=== PATIENT | female | born 1945 | race Caucasian/White ===

== ENCOUNTER 2022-08-17 13:36 | Inpatient (IN) ==
[2022-08-17] MEDS ORDERED: SODIUM CHLORIDE 0.9% 500 ML IV STA (14:01)
[2022-08-17] MEDS ORDERED: ONDANSETRON INJ 2 MG/ML 2 ML VIAL IV STA (14:01)
--- NOTE | 2022-08-17 14:05 | Emergency Department Note ---
Impression & Plan Acute pancreatitis, Acute diverticulitis, Acute right flank pain ED Provider Note NAME: RICKEY GASTON AGE: 77 SEX: F : 1945 ARRIVES VIA: Walk-In INFORMANT: Patient, ED PROVIDER(S): Pola Huston DO CHIEF COMPLAINT: Abdominal pain HPI: The patient is a 77-year-old female who is a history of chronic back pain who presented to the emergency department for an evaluation of upper abdominal pain. The patient recently had an injection in her back with an epidural injection. She states he did notice that her pain in her back had significantly improved but then she started noticing right upper quadrant and right flank pain. She denies having any chest pain or difficulty breathing. She denies having any dysuria or frequency. But does complain of urinary frequency and weight loss. She denies having any lower extremity swelling. She denies having any black or bloody bowels. The patient states that she still has her ga llbladder. ROS: See above HPI for pertinent positives & negatives. A total of 10 systems reviewed and were otherwise negative. PAST MEDICAL HISTORY: See Below PAST SURGICAL HISTORY: See Below FAMILY HISTORY: See Below SOCIAL HISTORY: See Below HOME MEDICATIONS: See Below ALLERGIES: See Below VITALS: See Below PHYSICAL EXAMINATION: GENERAL: Patient is awake alert in no acute distress patient is resting comfortably and showing no signs of anxiety EYES: The conjunctivae are clear. The pupils are round and reactive. EARS, NOSE, MOUTH AND THROAT: The nose is without any evidence of any deformity. Mucous membranes are moist. Tongue is midline. NECK: The neck is nontender and supple. RESPIRATORY: Normal respiratory effort is noted there is no evidence of wheezing rhonchi or rales CARDIOVASCULAR: Regular rate and rhythm noted there no murmurs rubs or gallops normal S1 normal S2. GASTROINTESTINAL: Abdomen was soft and moderately distended. There is right upper quadrant tenderness to palpation. PELVIS: The Pelvis is stable. No tenderness to palpation is noted. BACK: Right CVA tenderness was noted to percussion. MUSCULOSKELETAL/EXTREMITIES: There is no evidence of gross deformity full range of motion is noted in the hips and shoulders. SKIN: There is no obvious evidence of any rash. There are no petechiae, pallor or cyanosis noted. NEUROLOGIC: Patient is awake alert and oriented x3. MEDICAL DECISION MAKING: The patient is a 77-year-old female who presented to the emergency department for an evaluation of flank pain. Patient has significant pain on physical exam. The patient was ordered IV fluids and IV antibiotics in the emergency department. She was found have signs of diverticulitis as well as pancreatitis on CT. The patient was found to have an elevation in her white blood cell count. Given her age and comorbidities I discussed this case with the on-call [facility]. They have agreed to evaluate the patient in the emergency department for further management and disposition. The patient was feeling much better on reevaluation. She did not want to have any pain me dication while in the emergency department. Triage Nursing notes reviewed. Prior medical records reviewed Vital Signs: reviewed and remarkable for no significant abnormalities Differential diagnosis: Etiologies such as appendicitis, diverticulitis, obstruction, inflammatory bowel disease, renal colic, PUD, biliary pathology, pancreatitis, mesenteric ischemia, aortic pathology, infections, genitourinary, UTI, perforated viscus, as well as others were entertained. ER treatment provided: See below Diagnostics interpreted by me: ECG: EKG was obtained in the emergency department. My interpretation is normal sinus rhythm at 67 bpm. There is no ectopy. There is no acute ST segment abnormalities noted. No previous tracing was available Cardiac Monitoring: An order was placed for continuous cardiac monitoring. The monitor shows a rate of 70 bpm with sinus rhythm. Laboratory studies: As stated above and show below. Imaging studies: See below. Radiographic imaging was reviewed by myself Consultation(s): I discussed this case with Dr. Hurst who is on-call for the [facility]. Past Med/Surg History Medical History (Updated 08/17/22 @ 17:58 by Pola Huston DO) DDD (degenerative disc disease) HLD (hyperlipidemia) HTN, goal below 140/80 Hypertension Prediabetes Sciatica Surgical History S/P partial hysterectomy Family History Other Heart disease Stroke Social History Smoking Status: Never smoker Feels Safe at Home: Yes Allergies Allergies Allergy/AdvReac Type Severity Reaction Status Date / Time No Known Allergies Allergy Unverified 08/17/22 17:31 Home Meds Home Medications Medication Instructions Recorded Confirmed aspirin 81 mg capsule 81 mg PO DAILY 08/17/22 08/17/22 cholecalciferol (vitamin D3) 25 1,000 unit PO DAILY 08/17/22 08/17/22 mcg (1,000 unit) tablet lisinopril 10 mg tablet 10 mg PO DAILY 08/17/22 08/17/22 meclizine 12.5 mg tablet 12.5 mg PO DAILY PRN Dizziness 08/17/22 08/17/22 multivitamin 1 cap PO DAILY 08/17/22 08/17/22 Results & Data (ED) Vital Signs Vital Signs - 24 hr 08/17/22 13:38 08/17/22 14:26 08/17/22 14:24 Temperature 36.8 C Temperature Source Temporal Artery Scan Pulse Rate 95 H 78 67 Pulse Rate from SpO2 Sensor 68 Respiratory Rate 18 19 Respiratory Effort / Characteristics Non-Labored Spontaneous Respiratory Depth Normal Respiratory Pattern Regular Blood Pressure 179/95 H Blood Pressure Mean 123 Blood Pressure Position Sitting Pulse Oximetry 95 93 Oxygen Delivery Method Room Air Sepsis Recent Fever Within 48 Hours No Sepsis New/Unexplained Change in Mental Status N/A Sepsis Action Taken by Nursing No Action Required 08/17/22 14:30 08/17/22 14:40 08/17/22 15:26 Temperature Temperature Source Pulse Rate 77 74 Pulse Rate from SpO2 Sensor 81 75 Respiratory Rate 18 18 Respiratory Effort / Characteristics Respiratory Depth Respiratory Pattern Blood Pressure 129/56 L Blood Pressure Mean 80 Blood Pressure Position Pulse Oximetry 92 94 Oxygen Delivery Method Sepsis Recent Fever Within 48 Hours Sepsis New/Unexplained Change in Mental Status Sepsis Action Taken by Nursing 08/17/22 15:26 08/17/22 15:30 08/17/22 15:40 Temperature Temperature Source Pulse Rate Pulse Rate from SpO2 Sensor 67 61 62 Respiratory Rate Respiratory Effort / Characteristics Respiratory Depth Respiratory Pattern Blood Pressure Blood Pressure Mean Blood Pressure Position Pulse Oximetry 96 96 97 Oxygen Delivery Method Sepsis Recent Fever Within 48 Hours Sepsis New/Unexplained Change in Mental Status Sepsis Action Taken by Nursing 08/17/22 15:50 08/17/22 16:00 08/17/22 16:00 Temperature Temperature Source Pulse Rate Pulse Rate from SpO2 Sensor Respiratory Rate Respiratory Effort / Characteristics Respiratory Depth Respiratory Pattern Blood Pressure 135/58 L Blood Pressure Mean 83 Blood Pressure Position Pulse Oximetry 97 97 Oxygen Delivery Method Sepsis Recent Fever Within 48 Hours Sepsis New/Unexplained Change in Mental Status Sepsis Action Taken by Nursing 08/17/22 16:10 08/17/22 17:20 Temperature Temperature Source Pulse Rate 70 Pulse Rate from SpO2 Sensor Respiratory Rate 19 Respiratory Effort / Characteristics Respiratory Depth Respiratory Pattern Blood Pressure Blood Pressure Mean Blood Pressure Position Pulse Oximetry 97 94 Oxygen Delivery Method Sepsis Recent Fever Within 48 Hours Sepsis New/Unexplained Change in Mental Status Sepsis Action Taken by [facility] Medications Current Medication List: was personally reviewed by me Laboratory Data Attestation: I reviewed the patient's lab results. 08/17/22 13:58 08/17/22 13:58 Lab Results 08/17/22 08/17/22 08/17/22 Range/Units 13:45 13:58 13:58 WBC 18.07 H (4.8-10.8) K/ul RBC 5.28 (4.20-5.40) M/uL Hgb 15.1 (12.0-16.0) g/dl Hct 45.0 (37.0-47.0) % MCV 85.2 (80.0-100.0) fL MCH 28.6 (25.0-34.0) pg MCHC 33.6 (32.0-36.0) g/dL RDW Std Deviation 41.3 (36.4-46.3) fL RDW Coeff of Fahad 13.3 (11.5-14.5) % Plt Count 403 H (130-400) K/uL MPV 8.9 L (9.4-12.4) fL Immature Gran % (Auto) 1.3 % Neut % (Auto) 77.4 % Lymph % (Auto) 12.0 % Lamar % (Auto) 8.5 % Eos % (Auto) 0.6 % Baso % (Auto) 0.2 % Neut # (Auto) 13.99 H (1.40-6.50) K/uL Lymph # (Auto) 2.16 (1.2-3.4) K/uL Lamar # (Auto) 1.54 H (0.11-0.59) K/uL Eos # (Auto) 0.11 (0-0.50) K/uL Baso # (Auto) 0.04 (0-0.2) K/uL Immature Gran # (Auto) 0.23 H (0.01-0.20) K/uL PT 10.3 (9.0-12.0) Seconds INR 1.0 (0.9-1.1) APTT 27.3 (21.0-31.0) Seconds PTT Ratio 1.0 Sodium (136-145) mmol/L Potassium (3.5-5.1) mmol/L Chloride (98-107) mmol/L Carbon Dioxide (21-32) mmol/L Anion Gap (3-11) BUN (6-23) mg/dl Creatinine (0.6-1.2) mg/dl Est Cr Clr Drug Dosing ml/min Est GFR ( Amer) ml/min Est GFR (Non-Af Amer) ml/min BUN/Creatinine Ratio (10-20) Glucose (70-99(Fasting)) mg/dl Calcium (8.6-10.3) mg/dl Total Bilirubin (0.2-1.0) mg/dl AST (13-39) U/L ALT (7-52) U/L Alkaline Phosphatase (34-104) U/L Troponin I High Sens (0-14) pg/ml Total Protein (6.0-8.3) gm/dl Albumin (3.4-5.0) gm/dl Globulin (2.5-4.0) gm/dl Albumin/Globulin Ratio (0.9-2) Lipase (11-82) U/L Urine Color Yellow Urine Appearance Clear (Clear) Urine pH 6.0 (4.5-7.5) Ur Specific [place] 1.010 (1.000-1.030) Urine Protein Negative (Negative) Urine Glucose (UA) Negative (Negative) Urine Ketones Negative (Negative) Urine Blood Trace-intact H (Negative) Urine Nitrite Negative (Negative) Urine Bilirubin Negative (Negative) Urine Urobilinogen Negative (Negative) Ur Leukocyte Esterase Negative (Negative) Urine RBC 0-4 (0-4) /hpf Urine WBC 0-5 (0-5) /hpf Ur Epithelial Cells 5-10 H (0-5) /lpf Urine Bacteria Negative (Negative) Hyaline Casts 0-5 (0-5) /lpf 08/17/22 Range/Units 13:58 WBC (4.8-10.8) K/ul RBC (4.20-5.40) M/uL Hgb (12.0-16.0) g/dl Hct (37.0-47.0) % MCV (80.0-100.0) fL MCH (25.0-34.0) pg MCHC (32.0-36.0) g/dL RDW Std Deviation (36.4-46.3) fL RDW Coeff of Fahad (11.5-14.5) % Plt Count (130-400) K/uL MPV (9.4-12.4) fL Immature Gran % (Auto) % Neut % (Auto) % Lymph % (Auto) % Lamar % (Auto) % Eos % (Auto) % Baso % (Auto) % Neut # (Auto) (1.40-6.50) K/uL Lymph # (Auto) (1.2-3.4) K/uL Lamar # (Auto) (0.11-0.59) K/uL Eos # (Auto) (0-0.50) K/uL Baso # (Auto) (0-0.2) K/uL Immature Gran # (Auto) (0.01-0.20) K/uL PT (9.0-12.0) Seconds INR (0.9-1.1) APTT (21.0-31.0) Seconds PTT Ratio Sodium 134 L (136-145) mmol/L Potassium 4.2 (3.5-5.1) mmol/L Chloride 99 (98-107) mmol/L Carbon Dioxide 23 (21-32) mmol/L Anion Gap 12 H (3-11) BUN 24 H (6-23) mg/dl Creatinine 0.77 (0.6-1.2) mg/dl Est Cr Clr Drug Dosing 62.2 ml/min Est GFR ( Amer) 86.3 ml/min Est GFR (Non-Af Amer) 74.5 ml/min BUN/Creatinine Ratio 31.2 H (10-20) Glucose 97 (70-99(Fasting)) mg/dl Calcium 9.6 (8.6-10.3) mg/dl Total Bilirubin 0.5 (0.2-1.0) mg/dl AST 17 (13-39) U/L ALT 16 (7-52) U/L Alkaline Phosphatase 103 (34-104) U/L Troponin I High Sens 5.1 (0-14) pg/ml Total Protein 7.9 (6.0-8.3) gm/dl Albumin 4.6 (3.4-5.0) gm/dl Globulin 3.3 (2.5-4.0) gm/dl Albumin/Globulin Ratio 1.4 (0.9-2) Lipase 293 H (11-82) U/L Urine Color Urine Appearance (Clear) Urine pH (4.5-7.5) Ur Specific [place] (1.000-1.030) Urine Protein (Negative) Urine Glucose (UA) (Negative) Urine Ketones (Negative) Urine Blood (Negative) Urine Nitrite (Negative) Urine Bilirubin (Negative) Urine Urobilinogen (Negative) Ur Leukocyte Esterase (Negative) Urine RBC (0-4) /hpf Urine WBC (0-5) /hpf Ur Epithelial Cells (0-5) /lpf Urine Bacteria (Negative) Hyaline Casts (0-5) /lpf Administered Medications Discontinued Medications Sodium Chloride (Nss) 500 mls @ 999 mls/hr IV .Q31M STA Stop: 08/17/22 14:31 Last Admin: 08/17/22 14:16 Dose: 999 mls/hr Documented By: KAREEM Piperacillin Sod/Tazobactam Sod (Zosyn) 4.5 gm in 120 mls @ 240 mls/hr IV NOW ONE Stop: 08/17/22 16:28 Last Admin: 08/17/22 16:39 Dose: 240 mls/hr Documented By: KAREEM Ioversol (Optiray 350 100ml) 83 ml IV ONCE ONE Stop: 08/17/22 15:01 Last Admin: 08/17/22 15:00 Dose: 83 ml Documented By: GIOVANNA Ondansetron HCl (Ondansetron Inj 2 Mg/Ml 2 Ml Vial) 4 mg IV NOW STA Stop: 08/17/22 14:02 Last Admin: 08/17/22 14:16 Dose: 4 mg Documented By: KAREEM Imaging Data Attestation: I personally reviewed and interpreted this imaging study as follows: My Impression: CT of the abdomen and pelvis was obtained in the emergency department. My interpretation is no free air, no definite obstruction, final report below. Radiologist's Impression: Abdomen/Pelvis CT 08/17/22 14:01 CT OF THE ABDOMEN AND PELVIS WITH CONTRAST CLINICAL HISTORY: Upper abdominal pain. COMPARISON STUDY: None. TECHNIQUE: Following IV administration of 83 mL of Optiray, axial images of the abdomen and pelvis were obtained from the lung bases to the proximal femurs. Images were reviewed in the axial, sagittal, and coronal planes. IV contrast was administered without complication. Automated exposure control was utilized for the study. A dose lowering technique was utilized adhering to the principles of ALARA. CT DOSE: 1000.62 mGy.cm FINDINGS: Lung bases are unremarkable. No pneumatosis, free air or portal venous gas is present. Hepatic steatosis. No biliary or pancreatic ductal dictation present. There is mild peripancreatic stranding. No peripancreatic fluid c ollection is present. There is no evidence for gland necrosis. The spleen and adrenal glands are unremarkable. Renal parapelvic cysts are present. There is no evidence for a bowel obstruction. Extensive colonic diverticulosis. There is subtle stranding adjacent to the proximal sigmoid colon. This suggests acute diverticulitis. There is no free air. There is no abscess. No lymphadenopathy is present. There is evidence for pelvic floor descent. No acute fractures are identified. Major vasculature is patent. IMPRESSION: 1. Findings consistent with acute pancreatitis. Mild peripancreatic stranding. No peripancreatic fluid collection. No evidence for gland necrosis. 2. Findings suggestive of mild acute diverticulitis of the proximal sigmoid colon. No free air or abscess. 3. Evidence for pelvic floor descent. 4. Hepatic steatosis. ACT 112: Negative or not required by law. Electronically signed by: Twan Walker M.D. 08/17/2022 3:48 PM Chest X-Ray 08/17/22 14:02 XR chest 1V portable CLINICAL HISTORY: Abdominal pain. COMPARISON STUDY: No previous studies for comparison. FINDINGS: Lung volumes are normal. Lungs are clear. There is no pneumothorax or pleural effusion. Mild cardiomegaly. Mediastinal contours are normal. There is no evidence for pulmonary edema. IMPRESSION: No acute cardiopulmonary findings. ACT 112: Negative or not required by law. Electronically signed by: Twan Walker M.D. 08/17/2022 2:38 PM Discharge Plan Visit Data Chief Complaint: Illness Stated Complaint: ILLNESS, BAD REACTION TO SHOTS ED Provider: Pola Huston Discharge Problem: Acute pancreatitis, Acute diverticulitis, Acute right flank pain Patient Disposition: Being Evaluated by Hospitalist Forms Stand Alone Forms: My [facility] Prescriptions Prescriptions: No Action meclizine 12.5 mg tablet 12.5 mg PO DAILY PRN (Reason: Dizziness) lisinopril 10 mg Tablet 10 mg PO DAILY multivitamin Capsule 1 cap PO DAILY cholecalciferol (vitamin D3) 25 mcg (1,000 unit) tablet 1,000 unit PO DAILY aspirin 81 mg Capsule 81 mg PO DAILY Referrals Referrals: PCP,NO [Physician] -
[2022-08-17 14:15] LABS: Appearance Urine Clear (Clear); Bilirubin Urine Negative (Negative); Blood Urine Trace-intact (Negative); Color Urine Yellow; Glucose Urine UA Negative (Negative); Ketones Urine Negative (Negative); Leukocyte Esterase Urine Negative (Negative); Nitrite Urine Negative (Negative); Protein Urine Negative (Negative); Urobilinogen Urine Negative (Negative)
[2022-08-17 14:16] LABS: Basophils # (auto) 0.04 K/uL (0-0.2); Basophils % (auto) 0.2 %; Eosinophils # (auto) 0.11 K/uL (0-0.50); Eosinophils % (auto) 0.6 %; Hemoglobin 15.1 g/dl (12.0-16.0); Immature Granulocytes # (auto) 0.23 K/uL (0.01-0.20); Immature Granulocytes % (auto) 1.3 %; Lymphocytes # (auto) 2.16 K/uL (1.2-3.4); Mean Corpuscular Hemoglobin 28.6 pg (25.0-34.0); Mean Corpuscular Hgb Conc 33.6 g/dL (32.0-36.0); Mean Corpuscular Volume 85.2 fL (80.0-100.0); Mean Platelet Volume 8.9 fL (9.4-12.4); Monocytes # (auto) 1.54 K/uL (0.11-0.59); Monocytes % (auto) 8.5 %; Neutrophils # (auto) 13.99 K/uL (1.40-6.50); Neutrophils % (auto) 77.4 %; Platelet Count 403 K/uL (130-400); RDW Coefficient of Variation 13.3 % (11.5-14.5); RDW Standard Deviation 41.3 fL (36.4-46.3); Red Blood Count 5.28 M/uL (4.20-5.40); White Blood Count 18.07 K/ul (4.8-10.8)
[2022-08-17 14:17] LABS: Bacteria Urine Negative (Negative); Hyaline Casts Urine 0-5 /lpf (0-5); RBC Urine 0-4 /hpf (0-4); WBC Urine 0-5 /hpf (0-5)
[2022-08-17 14:36] LABS: Albumin Globulin Ratio 1.4 (0.9-2); Albumin Level 4.6 gm/dl (3.4-5.0); BUN Creatinine Ratio 31.2 (10-20); Bilirubin,Total 0.5 mg/dl (0.2-1.0); Calcium 9.6 mg/dl (8.6-10.3); Creatinine Clr Calc Pharmacy 62.2 ml/min; Est GFR (African American) 86.3 ml/min; Est GFR (Non-African American) 74.5 ml/min; Globulin 3.3 gm/dl (2.5-4.0); Potassium 4.2 mmol/L (3.5-5.1); Total Protein 7.9 gm/dl (6.0-8.3)
--- NOTE | 2022-08-17 14:39 | XRay Report ---
XR chest 1V portable CLINICAL HISTORY: Abdominal pain. COMPARISON STUDY: No previous studies for comparison. FINDINGS: Lung volumes are normal. Lungs are clear. There is no pneumothorax or pleural effusion. Mil d cardiomegaly. Mediastinal contours are normal. There is no evidence for pulmonary edema. IMPRESSION: No acute cardiopulmonary findings. ACT 112: Negative or not required by law. Electronically signed by: Twan Walker M.D. 08/17/2022 2:38 PM
[2022-08-17 14:40] LABS: Troponin I High Sensitivity 5.1 pg/ml (0-14)
[2022-08-17 14:50] LABS: Partial Thromboplastin Time 27.3 Seconds (21.0-31.0); Prothrombin Time 10.3 Seconds (9.0-12.0)
[2022-08-17] MEDS ORDERED: OPTIRAY 350 100ml IV ONE (15:00)
--- NOTE | 2022-08-17 15:50 | CT Scan Report ---
CT OF THE ABDOMEN AND PELVIS WITH CONTRAST CLINICAL HISTORY: Upper abdominal pain. COMPARISON STUDY: None. TECHNIQUE: Following IV administration of 83 mL of Optiray, axial images of the abdomen and pelvis we re obtained from the lung bases to the proximal femurs. Images were reviewed in the axial, sagittal, and coronal planes. IV contrast was administered without complication. Automated exposure control wa s utilized for the study. A dose lowering technique was utilized adhering to the principles of ALARA . CT DOSE: 1000.62 mGy.cm FINDINGS: Lung bases are unremarkable. No pneumatosis, free air or portal venous gas is present. Hepa tic steatosis. No biliary or pancreatic ductal dictation present. There is mild peripancreatic strand ing. No peripancreatic fluid collection is present. There is no evidence for gland necrosis. The sple en and adrenal glands are unremarkable. Renal parapelvic cysts are present. There is no evidence for a bowel obstruction. Extensive colonic diverticulosis. There is subtle stranding adjacent to the prox imal sigmoid colon. This suggests acute diverticulitis. There is no free air. There is no abscess. No lymphadenopathy is present. There is evidence for pelvic floor descent. No acute fractures are ident ified. Major vasculature is patent. IMPRESSION: 1. Findings consistent with acute pancreatitis. Mild peripancreatic stranding. No peripancreatic flui d collection. No evidence for gland necrosis. 2. Findings suggestive of mild acute diverticulitis of the proximal sigmoid colon. No free air or abs cess. 3. Evidence for pelvic floor descent. 4. Hepatic steatosis. ACT 112: Negative or not required by law. Electronically signed by: Twan Walker M.D. 08/17/2022 3:48 PM
[2022-08-17] MEDS ORDERED: PIPERACILLIN/TAZOBACTAM 4.5 GM/120 ML BAG IV ONE (15:59)
--- NOTE | 2022-08-17 17:18 | Electrocardiogram Report ---
Test Reason : Blood Pressure : / mmHG Vent. Rate : 067 BPM Atrial Rate : 067 BPM P-R Int : 136 ms QRS Dur : 084 ms QT Int : 380 ms P-R-T Axes : 049 068 041 degrees QTc Int : 401 ms Normal sinus rhythm Incomplete right bundle branch block Normal ECG No previous ECGs available Confirmed by Alberto Vanegas ([id number]) on 08/17/2022 5:18:02 PM Referred By: REFERRED SELF Confirmed By:Alberto Vanegas
--- NOTE | 2022-08-17 17:44 | History & Physical Report ---
Date of Service August 17, 2022 Assessment & Plan (1) Acute diverticulitis: (2) Pancreatitis: (3) HTN, goal below 140/80: (4) Prediabetes: (5) DDD (degenerative disc disease): (6) HLD (hyperlipidemia): Plan Abd pain and Nausea: -2/2 Acute pancreatitis + Acute diverticulitis -elevated lipase and wbc -due to acute diverticulitis will start pt on zosyn -pt is willing to try po: will do low fat, clear liquid diet ---- morphine 1mg q8hr prn for severe pain and 150 cc NS -will advance diet as pt improve -will get AM Lipid and A1C HTN: -will hold Lisinopril for now --- BP in the ER was 120s/50s --- depending on the BP improvement will restart it -will continue aspirin Prediabetes: - am A1C - Diabetic diet DDD with chronic back pain: -doing better with injection -currently does not take any (she was prescribed Gabapentin and prednisone) HLD: -pt not on any statin -Lipid panel AM Diet: Clear liquid diet (DMII and low fat) DVT PPx: Lovenox Code Status: Full code Emergency Contact: Christen (Daughter in law) [phone] History of Present Illness Chief Complaint: Abd pain Primary Care Provider: Mary Jane Germain MD Pt is a 77 y/o F with hx of Prediabetes, HTN, HLD, DDD, Osteoporosis, diverticulosis came into the ER with 3 days hx of nausea, RUQ, R mid back pain. Per pt she has been having LLQ abd pain for 2 weeks which she attributed to her back pain and she received L4/5 TYLOR on 08/11/22. Pt denied any recent fever, diarrhea, vomiting but had decreased appetite. At bedside: pain is better. Denied any acute chest pain, SOB. Denied any ETOH intake or prior of gallstone. Allergies Allergy/AdvReac Type Severity Reaction Status Date / Time No Known Allergies Allergy Unverified 08/17/22 17:31 Home Medications Medication Instructions Recorded Confirmed Type aspirin 81 mg capsule 81 mg PO DAILY 08/17/22 08/17/22 History cholecalciferol (vitamin D3) 25 1,000 unit PO DAILY 08/17/22 08/17/22 History mcg (1,000 unit) tablet lisinopril 10 mg tablet 10 mg PO DAILY 08/17/22 08/17/22 History meclizine 12.5 mg tablet 12.5 mg PO DAILY PRN Dizziness 08/17/22 08/17/22 History multivitamin 1 cap PO DAILY 08/17/22 08/17/22 History Past Med/Surg History Medical History (Updated 08/17/22 @ 17:39 by Glenda Barba MD) DDD (degenerative disc disease) HLD (hyperlipidemia) HTN, goal below 140/80 Hypertension Prediabetes Sciatica Surgical History S/P partial hysterectomy Family History Other Heart disease Stroke Social History Smoking Status: Never smoker Feels Safe at Home: Yes Review of Systems Review of Systems: At least 10 Review of systems were reviewed and all negative except as indicated in HPI Physical Exam Physical Exam: General:. NAD, well developed, well nourished, average body habitus HEENT:. Normocephalic and atraumatic, Normal Conjunctiva, EOMI, Sclera is non- icteric Lungs:. No signs of respiratory distress, CTA, no wheezing or crackles Heart:. Normal S1, S2, no murmur Abdominal:obese abd, TTP of the LLQ abd and epigastric area MSK:trace b/l LE pitting edema Psych:. AAOx3, normal affect Results & Data Results & Data Vital Signs (Past 12 Hours) Vital Signs Temp Pulse Resp BP Pulse Ox O2 Del Method 08/17/22 17:20 70 19 94 08/17/22 16:10 97 08/17/22 16:00 97 08/17/22 16:00 135/58 L 08/17/22 15:50 97 08/17/22 15:40 97 08/17/22 15:30 96 08/17/22 15:26 96 08/17/22 15:26 129/56 L 08/17/22 14:40 74 18 94 08/17/22 14:30 77 18 92 08/17/22 14:24 67 19 93 08/17/22 14:26 78 08/17/22 13:38 36.8 C 95 H 18 179/95 H 95 Room Air Laboratory Results Short CBC 08/17/22 Range/Units 13:58 WBC 18.07 H (4.8-10.8) K/ul Hgb 15.1 (12.0-16.0) g/dl Hct 45.0 (37.0-47.0) % Plt Count 403 H (130-400) K/uL BMP 08/17/22 13:58 Sodium 134 L Potassium 4.2 Chloride 99 Carbon Dioxide 23 BUN 24 H Creatinine 0.77 Glucose 97 Calcium 9.6 Liver Function 08/17/22 Range/Units 13:58 Total Bilirubin 0.5 (0.2-1.0) mg/dl AST 17 (13-39) U/L ALT 16 (7-52) U/L Alkaline Phosphatase 103 (34-104) U/L Albumin 4.6 (3.4-5.0) gm/dl Urine 08/17/22 Range/Units 13:45 Urine Color Yellow Urine Appearance Clear (Clear) Urine pH 6.0 (4.5-7.5) Ur Specific [place] 1.010 (1.000-1.030) Urine Protein Negative (Negative) Urine Glucose (UA) Negative (Negative) Diagnostic Findings Abdomen/Pelvis CT 08/17/22 14:01 CT OF THE ABDOMEN AND PELVIS WITH CONTRAST CLINICAL HISTORY: Upper abdominal pain. COMPARISON STUDY: None. TECHNIQUE: Following IV administration of 83 mL of Optiray, axial images of the abdomen and pelvis were obtained from the lung bases to the proximal femurs. Images were reviewed in the axial, sagittal, and coronal planes. IV contrast was administered without complication. Automated exposure control was utilized for the study. A dose lowering technique was utilized adhering to the principles of ALARA. CT DOSE: 1000.62 mGy.cm FINDINGS: Lung bases are unremarkable. No pneumatosis, free air or portal venous gas is present. Hepatic steatosis. No biliary or pancreatic ductal dictation present. There is mild peripancreatic stranding. No peripancreatic fluid collection is present. There is no evidence for gland necrosis. The spleen and adrenal glands are unremarkable. Renal parapelvic cysts are present. There is no evidence for a bowel obstruction. Extensive colonic diverticulosis. There is subtle stranding adjacent to the proximal sigmoid colon. This suggests acute diverticulitis. There is no free air. There is no abscess. No lymphadenopathy is present. There is evidence for pelvic floor descent. No acute fractures are identified. Major vasculature is patent. IMPRESSION: 1. Findings consistent with acute pancreatitis. Mild peripancreatic stranding. No peripancreatic fluid collection. No evidence for gland necrosis. 2. Findings suggestive of mild acute diverticulitis of the proximal sigmoid colon. No free air or abscess. 3. Evidence for pelvic floor descent. 4. Hepatic steatosis. ACT 112: Negative or not required by law. Electronically signed by: Twan Walker M.D. 08/17/2022 3:48 PM Chest X-Ray 08/17/22 14:02 XR chest 1V portable CLINICAL HISTORY: Abdominal pain. COMPARISON STUDY: No previous studies for comparison. FINDINGS: Lung volumes are normal. Lungs are clear. There is no pneumothorax or pleural effusion. Mild cardiomegaly. Mediastinal contours are normal. There is no evidence for pulmonary edema. IMPRESSION: No acute cardiopulmonary findings. ACT 112: Negative or not required by law. Electronically signed by: Twan Walker M.D. 08/17/2022 2:38 PM Code Status & VTE Plan VTE Prophylaxis Plan VTE Prophylaxis will be ordered: Yes
[2022-08-17] MEDS ORDERED: ONDANSETRON INJ 2 MG/ML 2 ML VIAL IV PRN (20:15)
[2022-08-17] MEDS ORDERED: MoRPHine SULFATE 2 MG/ML CARP IV PRN (20:15)
[2022-08-17] MEDS: SODIUM CHLORIDE 0.9% 1000ML 1,000 ML IV SCH (20:45)
[2022-08-17] MEDS: PIPERACILLIN/TAZOBACTAM 3.375 GM in DEXTROSE 5% 100 ML IV SCH (23:27)
[2022-08-17] MEDS: ENOXAPARIN INJ 40 MG/0.4 ML SYR SQ SCH (23:42)
[2022-08-18] MEDS: SODIUM CHLORIDE 0.9% 1000ML 1,000 ML IV SCH ×3 (04:23→16:29)
[2022-08-18] MEDS: PIPERACILLIN/TAZOBACTAM 3.375 GM in DEXTROSE 5% 100 ML IV SCH ×3 (05:43→20:00)
[2022-08-18 07:45] LABS: Basophils # (auto) 0.02 K/uL (0-0.2); Basophils % (auto) 0.2 %; Eosinophils # (auto) 0.18 K/uL (0-0.50); Eosinophils % (auto) 1.4 %; Hematocrit (blood only) 42.7 % (37.0-47.0); Immature Granulocytes # (auto) 0.13 K/uL (0.01-0.20); Lymphocytes # (auto) 1.82 K/uL (1.2-3.4); Lymphocytes % (auto) 14.3 %; Mean Corpuscular Hemoglobin 28.1 pg (25.0-34.0); Mean Corpuscular Hgb Conc 32.8 g/dL (32.0-36.0); Mean Corpuscular Volume 85.6 fL (80.0-100.0); Mean Platelet Volume 8.7 fL (9.4-12.4); Monocytes # (auto) 1.09 K/uL (0.11-0.59); Monocytes % (auto) 8.6 %; Neutrophils # (auto) 9.48 K/uL (1.40-6.50); Neutrophils % (auto) 74.5 %; Platelet Count 355 K/uL (130-400); RDW Coefficient of Variation 13.5 % (11.5-14.5); RDW Standard Deviation 42.4 fL (36.4-46.3); Red Blood Count 4.99 M/uL (4.20-5.40); White Blood Count 12.72 K/ul (4.8-10.8)
[2022-08-18 08:00] LABS: Albumin Globulin Ratio 1.5 (0.9-2); Albumin Level 4.2 gm/dl (3.4-5.0); BUN Creatinine Ratio 22.5 (10-20); Bilirubin,Total 0.7 mg/dl (0.2-1.0); Calcium 8.8 mg/dl (8.6-10.3); Creatinine Clr Calc Pharmacy 59.2 ml/min; Est GFR (African American) 82.4 ml/min; Est GFR (Non-African American) 71.1 ml/min; Globulin 2.8 gm/dl (2.5-4.0); Magnesium 2.4 mg/dl (1.7-2.4); Potassium 4.5 mmol/L (3.5-5.1)
[2022-08-18] MEDS: ASPIRIN 81 MG ECTAB PO SCH ×2 (08:41→12:46)
[2022-08-18] MEDS: MULTIVITAMIN TAB PO SCH ×2 (08:41→12:46)
[2022-08-18] MEDS: CHOLECALCIFEROL 1,000 UNITS 25 MCG TAB PO SCH ×2 (08:41→12:46)
[2022-08-18 09:41] LABS: Estimated Average Glucose 126 mg/dl
--- NOTE | 2022-08-18 15:23 | Hospitalist Progress Note ---
Date of Service August 18, 2022 Assessment & Plan (1) Acute diverticulitis: (2) Pancreatitis: (3) HTN, goal below 140/80: (4) Prediabetes: (5) DDD (degenerative disc disease): (6) HLD (hyperlipidemia): Plan Abd pain and Nausea: -2/2 Acute pancreatitis + Acute diverticulitis -elevated lipase and wbc -due to acute diverticulitis will start pt on zosyn -pt is willing to try po: will do low fat, clear liquid diet -morphine 1mg q8hr prn for severe pain and 150 cc NS -will advance diet as pt improve - Lipid-triglycerides elevated at 222 and A1C:6.0 -No more abdominal pain and no nausea and or vomiting -Patient wants to go home Acute pancreatitis Lipase mildly elevated at 290 Without any more nausea and vomiting Diet advanced as tolerated We will repeat labs tomorrow and if she can tolerate diet will be discharged home HTN: -will hold Lisinopril for now - BP in the ER was 120s/50s -Remains well controlled Prediabetes: -Hemoglobin A1c 6.0 - Diabetic diet DDD with chronic back pain: -doing better with injection -currently does not take any (she was prescribed Gabapentin and prednisone) HLD: -pt not on any statin -Lipid panel AM Diet: Clear liquid diet (DMII and low fat) Will advance diet as tolerated DVT PPx: Lovenox Code Status: Full code Emergency Contact: Christen (Daughter in law) [phone] Likely discharge tomorrow Admission and Anticipated Discharge Date Admission Date: August 17, 2022 Subjective 08/18/2022 The patient was seen and examined in medical telemetry unit She was admitted with abdominal pain that goes into the back with initial nausea but no vomiting She has had recent injection of steroid at the back for chronic back pain No fever and or chills Has been feeling better since admission Review of Systems Review of Systems: All systems reviewed and are unremarkable except as noted below Gastrointestinal: No acute distention, nausea and or vomiting Physical Exam Physical Exam: Sitting on edge chair without any acute distress Constitutional: well nourished and + obese; not ill appearing Eyes: PERRL, conjunctivae normal, anicteric sclerae ENMT: external ear and nose normal, oropharynx normal Respiratory: + labored breathing; no respiratory distress Auscultation: lungs clear to auscultation bilaterally Cardiovascular: Rate/Rhythm: regular rate and regular rhythm; not tachycardic Heart Sounds: normal S1 and normal S2; no murmur Extremities: + edema (Trace edema bilaterally) Gastrointestinal (Abdomen): Inspection/Auscultation: normal bowel sounds; abdomen not distended Percussion/Palpation: + abdomen tender (Left lower quadrant and epigastrium without rebound) and abdomen soft; no guarding Musculoskeletal: No acute arthritis involving any of the joint Neurologic: normal touch/pain/proprioception; + does not move all extremities Lymphatic: no cervical or axillary lymphadenopathy Results & Data Results & Data Vital Signs (Past 12 Hours) Vital Signs Temp Pulse Pulse Resp BP Pulse Ox O2 Del Method 08/18/22 14:50 68 08/18/22 11:25 36.8 C 59 L 18 130/68 93 Room Air 08/18/22 09:28 36.7 C 65 20 128/75 94 Room Air 08/18/22 06:01 56 L 08/18/22 03:59 36.9 C 61 20 117/62 93 Room Air Laboratory Results Short CBC 08/18/22 Range/Units 07:19 WBC 12.72 H (4.8-10.8) K/ul Hgb 14.0 (12.0-16.0) g/dl Hct 42.7 (37.0-47.0) % Plt Count 355 (130-400) K/uL BMP 08/18/22 07:19 Sodium 135 L Potassium 4.5 Chloride 103 Carbon Dioxide 24 BUN 18 Creatinine 0.80 Glucose 114 H Calcium 8.8 Liver Function 08/18/22 Range/Units 07:19 Total Bilirubin 0.7 (0.2-1.0) mg/dl AST 16 (13-39) U/L ALT 15 (7-52) U/L Alkaline Phosphatase 90 (34-104) U/L Albumin 4.2 (3.4-5.0) gm/dl Medications Administered Current Inpatient Medications Aspirin (Aspirin 81 Mg Ectab) 81 mg PO DAILY JAIME Stop: 09/17/22 08:59 Last Admin: 08/18/22 12:46 Dose: 81 mg Enoxaparin Sodium (Enoxaparin Inj 40 Mg/0.4 Ml Syr) 40 mg SQ Q24H JAIME Stop: 09/16/22 20:59 Last Admin: 08/17/22 23:42 Dose: 40 mg Sodium Chloride (Nss 1000ml) 1,000 mls @ 150 mls/hr IV .[id number] [facility] Stop: 09/16/22 20:14 Last Admin: 08/18/22 10:04 Dose: 150 mls/hr Piperacillin Sod/Tazobactam (Sod 3.375 gm/ Dextrose) 115 mls @ 28.75 mls/hr IV Q8H [facility]; Protocol Stop: 08/27/22 20:59 Last Admin: 08/18/22 12:45 Dose: 28.8 mls/hr Morphine Sulfate (Morphine Sulfate 2 Mg/Ml Carp) 1 mg IV Q8H PRN PRN Reason: Severe Pain (Scale 7, 8, 9,10) Stop: 08/31/22 20:14 Multivitamins (Multivitamin Tab) 1 tab PO QAM [facility] Stop: 09/17/22 08:59 Last Admin: 08/18/22 12:46 Dose: 1 tab Ondansetron HCl (Ondansetron Inj 2 Mg/Ml 2 Ml Vial) 4 mg IV Q6H PRN PRN Reason: Nausea Stop: 09/16/22 20:14 Vitamin D (Cholecalciferol 1,000 Units 25 Mcg Tab) 1,000 units PO DAILY [facility] Stop: 09/17/22 08:59 Last Admin: 08/18/22 12:46 Dose: 1,000 units
[2022-08-18] MEDS: ENOXAPARIN INJ 40 MG/0.4 ML SYR SQ SCH (20:00)
[2022-08-19] MEDS: SODIUM CHLORIDE 0.9% 1000ML 1,000 ML IV SCH ×3 (00:51→11:35)
[2022-08-19] MEDS: PIPERACILLIN/TAZOBACTAM 3.375 GM in DEXTROSE 5% 100 ML IV SCH (04:57)
[2022-08-19 07:10] LABS: Basophils # (auto) 0.02 K/uL (0-0.2); Basophils % (auto) 0.2 %; Eosinophils # (auto) 0.22 K/uL (0-0.50); Eosinophils % (auto) 2.6 %; Hematocrit (blood only) 39.3 % (37.0-47.0); Hemoglobin 13.1 g/dl (12.0-16.0); Immature Granulocytes # (auto) 0.08 K/uL (0.01-0.20); Immature Granulocytes % (auto) 0.9 %; Lymphocytes % (auto) 18.8 %; Mean Corpuscular Hemoglobin 28.6 pg (25.0-34.0); Mean Corpuscular Hgb Conc 33.3 g/dL (32.0-36.0); Mean Corpuscular Volume 85.8 fL (80.0-100.0); Monocytes # (auto) 0.94 K/uL (0.11-0.59); Monocytes % (auto) 11.1 %; Neutrophils # (auto) 5.63 K/uL (1.40-6.50); Neutrophils % (auto) 66.4 %; Platelet Count 297 K/uL (130-400); RDW Coefficient of Variation 13.6 % (11.5-14.5); RDW Standard Deviation 42.4 fL (36.4-46.3); Red Blood Count 4.58 M/uL (4.20-5.40); White Blood Count 8.49 K/ul (4.8-10.8)
[2022-08-19 07:21] LABS: Albumin Globulin Ratio 1.5 (0.9-2); Albumin Level 3.8 gm/dl (3.4-5.0); Bilirubin,Total 0.5 mg/dl (0.2-1.0); Calcium 8.4 mg/dl (8.6-10.3); Creatinine Clr Calc Pharmacy 61.5 ml/min; Est GFR (African American) 86.3 ml/min; Est GFR (Non-African American) 74.5 ml/min; Globulin 2.5 gm/dl (2.5-4.0); Magnesium 2.2 mg/dl (1.7-2.4); Phosphorus 3.4 mg/dl (2.5-4.9); Potassium 4.3 mmol/L (3.5-5.1); Total Protein 6.3 gm/dl (6.0-8.3)
[2022-08-19] MEDS: CHOLECALCIFEROL 1,000 UNITS 25 MCG TAB PO SCH (08:11)
[2022-08-19] MEDS: ASPIRIN 81 MG ECTAB PO SCH (08:11)
[2022-08-19] MEDS: MULTIVITAMIN TAB PO SCH (08:11)
--- NOTE | 2022-08-19 12:50 | Hospitalist Progress Note ---
Date of Service August 19, 2022 Assessment & Plan (1) Acute diverticulitis: (2) Pancreatitis: (3) HTN, goal below 140/80: (4) Prediabetes: (5) DDD (degenerative disc disease): (6) HLD (hyperlipidemia): Plan Abd pain and Nausea: -2/2 Acute pancreatitis + Acute diverticulitis -elevated lipase and wbc -due to acute diverticulitis will start pt on zosyn -pt is willing to try po: will do low fat, clear liquid diet -morphine 1mg q8hr prn for severe pain and 150 cc NS -will advance diet as pt improve - Lipid-triglycerides elevated at 222 and A1C:6.0 -No more abdominal pain and no nausea and or vomiting -Has been tolerating regular diet without any significant symptoms -She will be given Augmentin and discharged home this afternoon Acute pancreatitis Lipase mildly elevated at 290 Without any more nausea and vomiting Diet advanced as tolerated We will repeat labs tomorrow and if she can tolerate diet will be discharged home Abdominal pain nausea no vomiting and tolerating regular diet HTN: -will hold Lisinopril for now - BP in the ER was 120s/50s -Remains well controlled Prediabetes: -Hemoglobin A1c 6.0 - Diabetic diet DDD with chronic back pain: -doing better with injection -currently does not take any (she was prescribed Gabapentin and prednisone) HLD: -pt not on any statin -Lipid panel AM Diet: Clear liquid diet (DMII and low fat) Will advance diet as tolerated DVT PPx: Lovenox Code Status: Full code Emergency Contact: Christen (Daughter in law) [phone] Will be discharged home this afternoon Admission and Anticipated Discharge Date Admission Date: August 17, 2022 Subjective 08/18/2022 The patient was seen and examined in medical telemetry unit She was admitted with abdominal pain that goes into the back with initial nausea but no vomiting She has had recent injection of steroid at the back for chronic back pain No fever and or chills Has been feeling better since admission 08/19/2022 The patient was seen and examined in medical telemetry unit She has been stable without any symptoms Has been tolerating regular diet She was discharged home this afternoon Review of Systems Review of Systems: All systems reviewed and are unremarkable except as noted below Gastrointestinal: No acute distention, nausea and or vomiting Physical Exam Physical Exam: Sitting on edge chair without any acute distress Constitutional: well nourished and + obese; not ill appearing Eyes: PERRL, conjunctivae normal, anicteric sclerae ENMT: external ear and nose normal, oropharynx normal Respiratory: + labored breathing; no respiratory distress Auscultation: lungs clear to auscultation bilaterally Cardiovascular: Rate/Rhythm: regular rate and regular rhythm; not tachycardic Heart Sounds: normal S1 and normal S2; no murmur Extremities: + edema (Trace edema bilaterally) Gastrointestinal (Abdomen): Inspection/Auscultation: normal bowel sounds; abdomen not distended Percussion/Palpation: abdomen soft; abdomen nontender (Left lower quadrant and epigastrium without rebound) and no guarding Neurologic: normal touch/pain/proprioception; + does not move all extremities Lymphatic: no cervical or axillary lymphadenopathy Results & Data Results & Data Vital Signs (Past 12 Hours) Vital Signs Temp Pulse Pulse Resp BP Pulse Ox O2 Del Method 08/19/22 11:29 36.8 C 66 18 146/70 H 98 Room Air 08/19/22 08:00 37 C 60 14 127/69 94 Room Air 08/19/22 06:00 70 08/19/22 02:56 36.7 C 57 L 18 127/58 L 95 Room Air
[2022-08-19] MEDS ORDERED: AMOXICILLIN/CLAVULANATE 875 MG TAB PO SCH (17:00)
--- NOTE | 2022-08-20 09:04 | Discharge Summary ---
Date of Service August 19, 2022 Admission HPI Per Admitting Provider Pt is a 77 y/o F with hx of Prediabetes, HTN, HLD, DDD, Osteoporosis, diverticulosis came into the ER with 3 days hx of nausea, RUQ, R mid back pain. Per pt she has been having LLQ abd pain for 2 weeks which she attributed to her back pain and she received L4/5 TYLOR on 08/11/22. Pt denied any recent fever, diarrhea, vomiting but had decreased appetite. At bedside: pain is better. Denied any acute chest pain, SOB. Denied any ETOH intake or prior of gallstone. Admission Exam Per Admitting Provider Physical Exam: General:.NAD, well developed, well nourished, average body habitus HEENT:.Normocephalic and atraumatic, Normal Conjunctiva, EOMI, Sclera is non- icteric Lungs:.No signs of respiratory distress, CTA, no wheezing or crackles Heart:.Normal S1, S2, no murmur Abdominal:obese abd, TTP of the LLQ abd and epigastric area MSK:trace b/l LE pitting edema Psych:.AAOx3, normal affect Principal Diagnosis Acute diverticulitis, acute pancreatitis Discharge Exam Sitting on edge chair without any acute distress Constitutional well nourished and + obese; not ill appearing Eyes PERRL, conjunctivae normal, anicteric sclerae ENMT external ear and nose normal, oropharynx normal Respiratory + labored breathing; no respiratory distress Auscultation: lungs clear to auscultation bilaterally Cardiovascular Rate/Rhythm: regular rate and regular rhythm; not tachycardic Heart Sounds: normal S1 and normal S2; no murmur Extremities: + edema (Trace edema bilaterally) Gastrointestinal (Abdomen) Inspection/Auscultation: normal bowel sounds; abdomen not distended Percussion/Palpation: abdomen soft; abdomen nontender (Left lower quadrant and epigastrium without rebound) and no guarding Neurologic normal touch/pain/proprioception; + does not move all extremities Lymphatic no cervical or axillary lymphadenopathy Discharge Data Allergies Allergy/AdvReac Type Severity Reaction Status Date / Time No Known Allergies Allergy Unverified 08/17/22 17:31 Consultations 08/17/22 16:12 ED Decision to Admit Stat Ordered Studies 08/17/22 14:01 CT abd pelvis IV con only Stat Hospital Course (1) Acute diverticulitis: (2) Pancreatitis: (3) HTN, goal below 140/80: (4) Prediabetes: (5) DDD (degenerative disc disease): (6) HLD (hyperlipidemia): Plan Abd pain and Nausea: -2/2 Acute pancreatitis + Acute diverticulitis -elevated lipase and wbc -due to acute diverticulitis will start pt on zosyn -pt is willing to try po: will do low fat, clear liquid diet -morphine 1mg q8hr prn for severe pain and 150 cc NS -will advance diet as pt improve - Lipid-triglycerides elevated at 222 and A1C:6.0 -No more abdominal pain and no nausea and or vomiting -Has been tolerating regular diet without any significant symptoms -She will be given Augmentin and discharged home this afternoon Acute pancreatitis Lipase mildly elevated at 290 Without any more nausea and vomiting Diet advanced as tolerated We will repeat labs tomorrow and if she can tolerate diet will be discharged home Abdominal pain nausea no vomiting and tolerating regular diet HTN: -will hold Lisinopril for now - BP in the ER was 120s/50s -Remains well controlled Prediabetes: -Hemoglobin A1c 6.0 - Diabetic diet DDD with chronic back pain: -doing better with injection -currently does not take any (she was prescribed Gabapentin and prednisone) HLD: -pt not on any statin -Lipid panel AM Diet: Clear liquid diet (DMII and low fat) Will advance diet as tolerated DVT PPx: Lovenox Code Status: Full code Emergency Contact: Christen (Daughter in law) [phone] Will be discharged home this afternoon Total Time Total Time Spent Total Time Spent (In Minutes): 45 minutes Discharge Plan Discharge Items Patient Disposition: Home - Self-Care Reason For Visit: DIVERTICULITIS Discharge Diagnosis: Acute diverticulitis, acute pancreatitis Condition on Discharge: Good Activity: Resume your previous activity Non-emergency contact: Primary Care Provider Call non-emergency contact if: you have any medication questions and your symptoms worsen Follow-up/Referrals: Mary Jane Germain MD [Primary Care Provider] - (Date & Time 08/25/2022 1:00 PM Provider Glenda Barba MD Department Family Medicine [facility] ) Diet: Regular Addtl Attending Provider Instructions: Please take precautions to avoid fall Finish the course of antibiotic and take [id number] probiotics Try to drink more fluid Continue to use stool softener Pending Studies at Discharge: No Stand-Alone Forms: My [facility], Smoking Cessation Medications and DC Order Prescriptions: New amoxicillin-pot clavulanate 875-125 mg Tablet 1 tab PO BIDM Qty: 20 0RF Continued meclizine 12.5 mg tablet 12.5 mg PO DAILY PRN (Reason: Dizziness) lisinopril 10 mg Tablet 10 mg PO DAILY multivitamin Capsule 1 cap PO DAILY cholecalciferol (vitamin D3) 25 mcg (1,000 unit) tablet 1,000 unit PO DAILY aspirin 81 mg Capsule 81 mg PO DAILY Discharge Orders: Discharge Order (Routine); Ordered 08/19/22 Ordered By: Shravan Navarro/Other Patient Handouts: Prediabetes, Diverticulosis and Diverticulitis, 5 Steps for Eating Healthier, Understanding Pancreatitis Admission Data Admit Date/Time: 08/17/22 16:55 Attending Provider: Shravan Kowalski Admit Provider: Glenda Barba Primary Care Provider: Mary Jane Germain Other Providers: Glenda Barba Other Interventions: Discharge Summary Assessment (RN) Last Done: 08/19/22 13:25
== END 2022-08-19 14:45 | disposition home or self-care (01) | DRG 391 ==
LOC: ED 13:36 → 2N 16:55 → SUATTDRO 16:55 → 2N 19:33

== ENCOUNTER 2023-01-09 07:32 | Inpatient (IN) ==
--- NOTE | 2023-01-02 15:40 | Anesthesiology Consultation ---
Date of Service January 02, 2023 Assessment & Plan (1) Encounter for pre-operative examination: Chart Review Chart Review: Acceptable Risk for Surgery and Patient NOT seen in Pre Admission Testing Surgeon-ordered PCP clearance 12/30/22: PAT labs reviewed. Pt experiencing significant anxiety r/t surgery and PCP Rx buspar 5mg BID. " Patient medically cleared and optimized for lumbar surgery on 01/09/23." Infectious Disease screening: Per PAT nursing assessment on 01/02/23, No known infectious disease contacts in past 10 days or current infectious disease symptoms. No recent travel outside the country. History Surgery Operation Date: 01/09/23 10:35 Proposed Procedures p L4-S1 Decompression and Fusion with Spinal Cord Monitoring - Tin Baker, Height/Weight Height: 5 ft 2 in Weight: 84.368 kg Allergies Allergy/AdvReac Type Severity Reaction Status Date / Time lidocaine AdvReac Unknown ? caused Verified 01/02/23 14:43 pancreatitis triamcinolone [From Kenalog] AdvReac Unknown ? caused Verified 01/02/23 14:43 pancreatitis Medications Home Medications Medication Instructions Recorded Confirmed Last Taken aspirin 81 mg capsule 81 mg PO QAM 08/17/22 01/02/23 Unknown cholecalciferol (vitamin D3) 25 1,000 unit PO QAM 08/17/22 01/02/23 Unknown mcg (1,000 unit) tablet lisinopril 10 mg tablet 10 mg PO QAM 08/17/22 01/02/23 Unknown meclizine 12.5 mg tablet 12.5 mg PO UD PRN Dizziness 08/17/22 01/02/23 Unknown multivitamin 1 cap PO QAM 08/17/22 01/02/23 Unknown Lidocaine Patch 1 dose topical UD PRN Pain 01/02/23 01/02/23 Unknown acetaminophen 500 mg capsule 1,000 mg PO BID PRN Pain 01/02/23 01/02/23 Unknown albuterol sulfate 90 mcg/actuation 1 inh inhalation UD PRN dust or 01/02/23 01/02/23 Unknown breath activated powder inhaler animal dander buspirone 5 mg tablet 5 mg PO BID 01/02/23 01/02/23 Unknown methyl salicylate-menthol topical 1 ea topical UD PRN Pain 01/02/23 01/02/23 Unknown ointment Past Medical History Medical History (Updated 01/02/23 @ 15:44 by Minnie Matt PA-C) Animal dander allergy Anxiety Arthritis DDD (degenerative disc disease) Environmental allergies Fatty liver History of acute pancreatitis 08/2022 - admitted [facility]. History of COVID-29 mar 2022. History of diverticulitis 08/2022 - admitted [facility] History of epidural anesthesia 08/2022 pain mgmt History of skin cancer removed. History of vertigo HLD (hyperlipidemia) no meds for. Hypertension Kidney cysts monitored yearly/no changes/ not done for 2022 as of current. Obesity Prediabetes 12/10/22 Ha1c: 6.2% Sciatica Spinal stenosis feet numb/burny sensation Past Family History Family History Other Heart disease Stroke Past Surgical History Surgical History History of anal fissures History of cataract surgery both History of colonoscopy History of endoscopy remote hx History of hysterectomy History of vascular surgery main vein is gone from left leg. 1971. Social History Smoking Status: Never smoker Do You Dip or Chew Tobacco: No Hx Alcohol Use: No Hx Substance Use: No substance use type: does not use Lab Results Anesthesia Preop Results Results Anesthesia Widget: WBC 6.43 K/ul (4.8-10.8) 12/24/22 Hgb 13.3 g/dl (12.0-16.0) 12/24/22 Hct 40.0 % (37.0-47.0) 12/24/22 Plt 262 K/uL (130-400) 12/24/22 Na 138 mmol/L (136-145) 12/24/22 K 4.2 mmol/L (3.5-5.1) 12/24/22 Cl 106 mmol/L (98-107) 12/24/22 CO2 22 mmol/L (21-32) 12/24/22 BUN 18 mg/dl (6-23) 12/24/22 Creat 0.69 mg/dl (0.6-1.2) 12/24/22 Glucose Level 98 mg/dl (70-99(Fasting)) 12/24/22 PT 10.3 Seconds (9.0-12.0) 12/24/22 PTT 27.4 Seconds (21.0-31.0) 12/24/22 INR 0.9 (0.9-1.1) 12/24/22 Urine Color Yellow 12/24/22 Urine Appearance Clear (Clear) 12/24/22 Urine pH 5.5 (4.5-7.5) 12/24/22 Urine Specific Novelty 1.013 (1.000-1.030) 12/24/22 Urine Protein Negative (Negative) 12/24/22 Urine Glucose (UA) Negative (Negative) 12/24/22 Urine Ketones Negative (Negative) 12/24/22 Urine Blood Negative (Negative) 12/24/22 Urine Nitrite Negative (Negative) 12/24/22 Urine Bilirubin Negative (Negative) 12/24/22 Urine Urobilinogen Negative (Negative) 12/24/22 Urine Leukocyte Esterase Negative (Negative) 12/24/22 Blood Type O Positive 12/24/22 Antibody Screen NEGATIVE 12/24/22 Testing Laboratory Results 12/10/22: Ha1c: 6.2% Electrocardiogram Date: 12/24/22 Findings: + NSR @ (94bpm) Chest X-Ray Date: 12/24/22 Findings: + NAD mild CM
[~2023-01-09 07:32] MED LIST: ACETAMINOPHEN 500 MG TAB PO SCH; CeleBREX 200 MG CAP PO SCH; GABAPENTIN 300 MG CAP PO SCH; LR 15ML/HR IV SCH; ceFAZolin 2000MG 2,000 MG/15 ML SYR IV SCH
[2023-01-09] MEDS ORDERED: PROPOFOL IV EMULSION 10 MG/ML 20 ML VIAL IV ONE ×2 (08:26→11:35)
[2023-01-09] MEDS ORDERED: ROCURONIUM BROMIDE 10 MG/ML 5 ML VIAL IV ONE ×2 (08:26→10:33)
[2023-01-09] MEDS ORDERED: DEXAMETHASONE SOD INJ 4 MG/ML VIAL ONE (08:26)
[2023-01-09] MEDS ORDERED: fentaNYL citrate PF 100 MCG/2 ML VIAL ONE (08:27)
[2023-01-09] MEDS ORDERED: ONDANSETRON INJ 2 MG/ML 2 ML VIAL ONE (08:27)
--- NOTE | 2023-01-09 09:00 | History & Physical Bridge Note ---
Date of Service January 09, 2023 History & Physical Bridge Note I have examined the patient, reviewed the History & Physical and in the interval since the performance of the History & Physical I have noted the following changes of clinical significance: no changes noted
--- NOTE | 2023-01-09 09:01 | History & Physical Report ---
Date of Service January 09, 2023 Assessment & Plan (1) Neurogenic claudication due to lumbar spinal stenosis: Plan: L4-S1 decompression and fusion History of Present Illness Chief Complaint: Back and leg pain Primary Care Provider: Mary Jane Germain MD This is a 77-year-old female presents with chronic persistent back and leg pain. Failing since course of nonoperative care she is here for surgical invention. Allergies Allergy/AdvReac Type Severity Reaction Status Date / Time lidocaine AdvReac Unknown ? caused Verified 01/02/23 14:43 pancreatitis triamcinolone [From Kenalog] AdvReac Unknown ? caused Verified 01/02/23 14:43 pancreatitis Home Medications Medication Instructions Recorded Confirmed Type aspirin 81 mg capsule 81 mg PO QAM 08/17/22 01/09/23 History cholecalciferol (vitamin D3) 25 1,000 unit PO QAM 08/17/22 01/09/23 History mcg (1,000 unit) tablet lisinopril 10 mg tablet 10 mg PO QAM 08/17/22 01/09/23 History meclizine 12.5 mg tablet 12.5 mg PO UD PRN Dizziness 08/17/22 01/09/23 History multivitamin 1 cap PO QAM 08/17/22 01/09/23 History Lidocaine Patch 1 dose topical UD PRN Pain 01/02/23 01/09/23 History acetaminophen 500 mg capsule 1,000 mg PO BID PRN Pain 01/02/23 01/09/23 History albuterol sulfate 90 mcg/actuation 1 inh inhalation UD PRN dust or 01/02/23 01/09/23 History breath activated powder inhaler animal dander buspirone 5 mg tablet 5 mg PO BID 01/02/23 01/09/23 History methyl salicylate-menthol topical 1 ea topical UD PRN Pain 01/02/23 01/09/23 History ointment Past Med/Surg History Medical History (Updated 01/09/23 @ 09:01 by Tin Baker DO) Animal dander allergy Anxiety Arthritis DDD (degenerative disc disease) Environmental allergies Fatty liver History of acute pancreatitis 08/2022 - admitted [facility]. History of COVID-29 mar 2022. History of diverticulitis 08/2022 - admitted [facility] History of epidural anesthesia 08/2022 pain mgmt History of skin cancer removed. History of vertigo HLD (hyperlipidemia) no meds for. Hypertension Kidney cysts monitored yearly/no changes/ not done for 2022 as of current. Obesity Prediabetes 12/10/22 Ha1c: 6.2% Sciatica Spinal stenosis feet numb/burny sensation Surgical History History of anal fissures History of cataract surgery both History of colonoscopy History of endoscopy remote hx History of hysterectomy History of vascular surgery main vein is gone from left leg. 1972. 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
[2023-01-09] MEDS ORDERED: ATROPINE SULFATE 0.1 MG/ML 10ML SYR IV PRN (09:12)
[2023-01-09] MEDS ORDERED: PROMETHAZINE HCL 6.25 MG in SODIUM CHLORIDE 0.9% 50 ML IV PRN (09:12)
[2023-01-09] MEDS ORDERED: ceFAZolin 330 MG/ML 1 GM VIAL ONE (09:42)
[2023-01-09] MEDS ORDERED: BUPIVACAINE/EPINEPHRINE 0.25% 1:200,000 30 ML VIAL ONE (09:42)
[2023-01-09] MEDS ORDERED: ePHEDrine sulfate 50 MG/ML AMP ONE (10:28)
[2023-01-09] MEDS ORDERED: FLOSEAL HEMOSTATIC MATRIX 10ML TOP ONE (11:43)
--- NOTE | 2023-01-09 11:50 | Operative Report ---
Post Operative Report Pre & Post Diagnosis Operation Date: 01/09/23 09:05 Pre-Op Diagnosis: Neurogenic claudication due to lumbar spinal stenosis Post-Op Diagnosis: Neurogenic claudication due to lumbar spinal stenosis I identified the patient and participated in the time-out.: Yes Procedure Operation Date: 01/09/23 09:05 Actual Procedures #1 lumbar decompression with bilateral medial facetectomies and foraminotomies L3-4, L4-5 and L5-S1. #2 posterior spine fusion L4-5 L5-S1. #3 placement of posterior instrumentation L4-S1. #4 interbody fusion L4-L5. #5 placement spiral 12 x 26 mm at L4-5 #6 placement locally harvested morselized autograft and posterior gutters. #7 placement I factor in the interbody space and infuse bone sponge Graft in the posterior gutters. Surgeon Tin Baker, DO Risk Specialist Brian Teresa Estimated Blood Loss 100 Findings See Below Patient is 5 foot 2 weighing over 83 kg with a BMI in excess of 33. Patient's body was to continue to significant technical difficulty required to be retractors longer instruments in order to perform her procedure. This at least 50% increased operative time. Specimens None Description of Procedure Patient was met with identified informed consent obtained. Patient was then taken to the operative suite underwent the patient placed in a prone position on the Peyman table top Julio frame. All bony promises well-padded eyes inspected to ensure no external pressure placed upon the. This point the lumbar spine was prepped and draped in sterile fashion. Sharp dissection with the assistance bradycardia form down to exposing the lamina and transverse processes of L4-5 and sacral ala bilaterally. Noncalcified fashion complete anatomy L5 L4 postlaminectomy L3 was performed including bilateral male facetectomies and foraminotomies addressing severe spinal stenosis. Pedicle screws were then placed in L4-L5 and S1 levels bilaterally with assistance of fluoroscopy and the properly sized amanda placed. By way of a transforaminal approach on the left complete discectomy of L4-5 was performed endplates guarded to subcortical mean bone and a 12 x 26 mm prior cage with I factor tapped in position. The rods and locked in final position bilaterally. The transverse processes of L4-L5 and sacral ala brought to subcortical bone and bone. Infuse collagen sponge, mass graft locally harvested morselized autograft was placed in the posterior lateral gutters. 15 round GORAN inserted. The incision was then closed with 1 Vicryl the fascia 2-0 Vicryl subcutaneously and 4 Monocryl for final skin closure. Steri- Strips sterile dressing placed. Patient waken taken to PACU in stable condition. Please note spinal cord monitoring was listed at the procedure no changes noted. Lastly Brian Teresa was present at the entire surgeon with the patient positioning complex portion of the surgeon fashion closure. I attest to the content of the Intraoperative Record and any orders documented therein. Any exceptions are noted below.
[2023-01-09] MEDS ORDERED: SUGAMMADEX SODIUM 200 MG/2 ML VIAL IV ONE (11:52)
[2023-01-09] MEDS: HYDROmorphone INJ 1 MG/ML SYRINGE IV PRN ×4 (12:36→12:54)
--- NOTE | 2023-01-09 12:49 | Anesthesiology Progress Note ---
Date of Service January 09, 2023 Anesthesia Post Procedure Vital Signs Vital Signs: Temp Pulse Pulse Resp BP BP Pulse Ox 01/09/23 12:20 82 14 120/57 L 93 01/09/23 12:11 36.0 C L 90 16 122/60 92 01/09/23 08:04 36.7 C 86 16 128/68 98 O2 Del Method O2 Flow Rate 01/09/23 12:20 Nasal Cannula 3 01/09/23 12:11 Nasal Cannula 3 01/09/23 08:04 Room Air Pain Intensity Back: Pain Intensity: 10 Transfer of Care Handoff Completed per policy Notes Mental Status: alert / awake / arousable Patient Amnestic to Procedure: Yes Nausea / Vomiting: adequately controlled Pain: adequately controlled Airway Patency, RR, SpO2: stable & adequate BP & HR: stable & adequate Hydration State: stable & adequate Anesthetic Complications: no major complications apparent
--- NOTE | 2023-01-09 12:52 | Fluoroscopy Report ---
FL lumbar spine 2-3V CLINICAL HISTORY: L4-S1 Decompression and Fusion COMPARISON STUDY: None. FLUOROSCOPY TIME: 24 seconds. Ka, r: 17.80 mGy FLUOROSCOPIC IMAGES: 2 FINDINGS: Fluoroscopy was provided during L4-L5 discectomy. Posterior decompression is noted. There a re bilateral pedicle screws at the L4, L5 and S1 levels with interconnecting rods. IMPRESSION: Fluoroscopy provided during L4-L5 discectomy with posterior decompression and L4-S1 pedi christi screw fusion. ACT 112: Negative or not required by law. Electronically signed by: Twan Walker M.D. 01/09/2023 12:50 PM
[2023-01-09] MEDS ORDERED: DO NOT ADMINISTER FLU VACCINE PRN (13:49)
[2023-01-09] MEDS ORDERED: PROMETHAZINE HCL 12.5 MG in SODIUM CHLORIDE 0.9% 50 ML IV PRN (13:49)
[2023-01-09] MEDS ORDERED: METOCLOPRAMIDE HCL INJ 5 MG/ML 2 ML VIAL IV PRN (13:49)
[2023-01-09] MEDS ORDERED: hydrOXYzine HCl 25 MG TAB PO PRN (13:49)
[2023-01-09] MEDS ORDERED: SOD PHOSPHATE/SOD BIPHOSPHATE ENEMA 132 ML BTL PR PRN (13:49)
[2023-01-09] MEDS ORDERED: MECLIZINE 12.5 MG TAB PO PRN (13:49)
[2023-01-09] MEDS ORDERED: diphenhydrAMINE Capsule 25 MG CAP PO PRN (13:49)
[2023-01-09] MEDS ORDERED: LORazepam 0.5 MG TAB PO PRN (13:49)
[2023-01-09] MEDS ORDERED: HYDROmorphone INJ 1 MG/ML SYRINGE IV PRN (13:49)
[2023-01-09] MEDS ORDERED: LORazepam 2 MG/1 ML VIAL IV PRN (13:49)
[2023-01-09] MEDS ORDERED: ONDANSETRON INJ 2 MG/ML 2 ML VIAL IV PRN (13:49)
[2023-01-09] MEDS ORDERED: DO NOT ADMINISTER PNEUMOCOCCAL VACCINE PRN (13:49)
[2023-01-09] MEDS ORDERED: FAMOTIDINE 20 MG TAB PO PRN (13:49)
[2023-01-09] MEDS ORDERED: HYDROmorphone INJ 0.5 MG/0.5 ML SYR IV PRN (13:49)
[2023-01-09] MEDS ORDERED: ALUMINUM/MAGNESIUM SUSP 30 ML UDC PO PRN (13:49)
[2023-01-09] MEDS ORDERED: bisacodyL 10 MG SUPP PR PRN (13:49)
[2023-01-09] MEDS ORDERED: MAGNESIUM HYDROXIDE SUSP 30 ML UDC PO PRN (13:49)
[2023-01-09] MEDS ORDERED: ACETAMINOPHEN 1,000 MG/100 ML VIAL IV PRN (13:49)
[2023-01-09] MEDS ORDERED: NALOXONE HCL 0.4 MG/1 ML VIAL/CARP IV PRN (13:49)
[2023-01-09] MEDS ORDERED: ONDANSETRON 4 MG OD TAB PO PRN (13:49)
[2023-01-09] MEDS ORDERED: ALBUTEROL HFA 8 GM INHALER INH PRN (14:14)
--- NOTE | 2023-01-09 14:23 | Consultation ---
Date of Consultation January 09, 2023 Assessment & Plan (1) Neurogenic claudication due to lumbar spinal stenosis: (2) HTN, goal below 140/80: (3) Prediabetes: (4) Anxiety and depression: Plan Ms. Almodovar is a 77-year-old female who presented to the ED for an elective surgical procedure under the care of Dr. Baker. Patient underwent L4- S1 decompression and fusion surgery today after failed conservative outpatient measures taken. Intraoperatively EBL 100 mL. Additional PMH includes HTN, HLD, prediabetes, and anxiety and depression. No history of blood clots or bleeding disorder. Preop ECG reviewed normal sinus rhythm without ectopy. She had an admission 08/18/22-08/20/22 with pancreatitis that was treated conservatively with antibiotics. No history of blood clots or bleeding disorder. Preop ECG normal sinus rhythm and chest x-ray without cardiopulmonary disease. Post operative lumbar x-ray: Fluoroscopy provided during L4-L5 discectomy with posterior decompression and L4-S1 pedicle screw fusion. Neurogenic claudication due to lumbar spinal stenosis: POD# 0 s/p decompression and fusion with Dr. Baker. Per ortho for pain control, wound care, anticoagulation and activities. Monitor H&H, preop hemoglobin 13.3 on 12/24/22. Continue incentive spirometry; demonstrated appropriate use PT/OT when appropriate HTN: Chronic stable Takes lisinopril; continue Preop creatinine 0.69 Check BMP in AM Anxiety and depression: Chronic stable Was recently prescribed BuSpar (12/2222); reports has not taken it. Will hold since she has not started it Prediabetes: Chronic stable Hemoglobin A1c 6.2 during preop testing Does not take any antidiabetic medications Diet-controlled Disposition: PCP: Dr. Germain CODE STATUS: Full code VTE prophylaxis: Per admitting team I spent a total of 60 minutes coordinating, documenting, and providing care for this patient excluding time spent in the performance of separately billed services. All of the aforementioned completed while collaborating with the assigned attending physician for a full treatment plan. Please see their addendum for further details. Supervising Physician Co-Signing Physician Notes Pt seen and examined by me, care coordinated w/ E. Luis ADRIAN, pls refer to her note above for further detail. Pt is a 77 yo F w/ HTN , HLD, prediabetes, and depression who is now post-op - s/p L4-S1 decompression and fusion surgery earlier today. Patient denies headache, dizziness, chest pain, shortness of breath, abdominal pain. Had some nausea earlier after having chicken broth, now denies any nausea. She si awake and alert and answers appropriately. Lungs are clear to auscultation, heart sounds regular, abdomen soft, nontender. She is moving extremities. She is on suppl. O2 (does not use any at home). Cont. to closely monitor, encourage IS. Plan as above. MD Valerie History of Present Illness Requesting Physician: Dr. Baker Reason for Consultation: postop medical management Attending Physician: Tin Baker DO History of Present Illness Ms. Almodovar is a 77-year-old female who presented to the ED for an elective surgical procedure under the care of Dr. Baker. Patient underwent L4- S1 decompression and fusion surgery today. Intraoperatively EBL 100 mL. Additional PMH includes HTN, HLD, prediabetes, and depression. She had an admission 08/18/22-08/20/22 with pancreatitis that was treated conservatively with antibiotics. No history of blood clots or bleeding disorder. Preop ECG normal sinus rhythm and chest x-ray without cardiopulmonary disease. Post operative lumbar x-ray: Fluoroscopy provided during L4-L5 discectomy with posterior decompression and L4-S1 pedicle screw fusion. Patient denies headache, dizziness, chest pain, shortness of breath, heart palpitations, abdominal pain or tenderness, urine or bowel changes. Today, she's laying down; did attempt clear liquids but emesis x1; just received Zofran at 1440. No BM or flatulence yet; still kind of sleepy post anesthesia. No neuropathic symptoms; able to move bilateral lower extremities. On 2 LNC SpO2 94%. Able to take nice deep breaths. Advised to continue continuous SpO2 monitor for now. Has a wesley catheter and GORAN drain x1. She was recently started on Buspar as an outpatient in December; she stated she hasn't taken any of it; so think we should hold it while here. She was having anxiety leading up to the surgery. [facility] hospitalist service was consulted for postoperative medical management. Thank you kindly for this medical consult. We are available 01/12 via [place] text for any questions or concerns. Allergies Allergy/AdvReac Type Severity Reaction Status Date / Time lidocaine AdvReac Unknown ? caused Verified 01/02/23 14:43 pancreatitis triamcinolone [From Kenalog] AdvReac Unknown ? caused Verified 01/02/23 14:43 pancreatitis Home Medications Medication Instructions Recorded Confirmed Type aspirin 81 mg capsule 81 mg PO QAM 08/17/22 01/09/23 History cholecalciferol (vitamin D3) 25 1,000 unit PO QAM 08/17/22 01/09/23 History mcg (1,000 unit) tablet lisinopril 10 mg tablet 10 mg PO QAM 08/17/22 01/09/23 History meclizine 12.5 mg tablet 12.5 mg PO UD PRN Dizziness 08/17/22 01/09/23 History multivitamin 1 cap PO QAM 08/17/22 01/09/23 History Lidocaine Patch 1 dose topical UD PRN Pain 01/02/23 01/09/23 History acetaminophen 500 mg capsule 1,000 mg PO BID PRN Pain 01/02/23 01/09/23 History albuterol sulfate 90 mcg/actuation 1 inh inhalation UD PRN dust or 01/02/23 01/09/23 History breath activated powder inhaler animal dander buspirone 5 mg tablet 5 mg PO BID 01/02/23 01/09/23 History methyl salicylate-menthol topical 1 ea topical UD PRN Pain 01/02/23 01/09/23 History ointment Patient History Medical History (Updated 01/09/23 @ 14:39 by KAYLAH Chau) Animal dander allergy Anxiety Anxiety and depression Arthritis DDD (degenerative disc disease) Environmental allergies Fatty liver History of acute pancreatitis 08/2022 - admitted [facility]. History of COVID-29 mar 2022. History of diverticulitis 08/2022 - admitted [facility] History of epidural anesthesia 08/2022 pain mgmt History of skin cancer removed. History of vertigo HLD (hyperlipidemia) no meds for. Hypertension Kidney cysts monitored yearly/no changes/ not done for 2022 as of current. Obesity Prediabetes 12/10/22 Ha1c: 6.2% Sciatica Spinal stenosis feet numb/burny sensation Surgical History History of anal fissures History of cataract surgery both History of colonoscopy History of endoscopy remote hx History of hysterectomy History of vascular surgery main vein is gone from left leg. 1972. 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 Beliefs That Will Affect Care: None Current Living Situation: Spouse Feels Safe at Home: Yes Assistive Devices: Walker Review of Systems Review of Systems: Neuro: (-) Falls, trauma, slurred speech (+) pain in HEENT: (-) GARZA, dizziness, dysphagia, visual or auditory changes CV: (-) CP, palpitations, swelling Resp: (-) SOB GI: (-) appetite changes, N/V/D, bowel changes : (-) urinary changes Skin: (-) rashes Psych: (-) anxiety, depression Physical Exam Physical Exam: Neuro: AAOx4, PERRLA, no aphagia, memory changes, CNII-XII grossly intact HEENT: head normocephalic, moist mucus membranes CV: S1/S2, (-) M/G/R, (-) edema, cap refill < 3 seconds. GORAN drain x1 faizan red bloody output Resp: Lungs CTA in all avalos. On 2LNC GI: Abdomen S/NT/ND, Ax4 bowel sounds, (-) CVA tenderness Musculoskeletal: 5/5 B/L UE strength, 5/5 B/L LE strength. No gait disturbance; does not use ambulatory assistive devices at baseline Skin: (-) rashes , (-) erythema. Psych: euthymic mood Results & Data Vital Signs (Past 12 Hours) Vital Signs Temp Pulse Pulse Resp BP BP Pulse Ox 01/09/23 14:05 36.3 C L 73 16 110/61 93 01/09/23 13:35 36.3 C L 72 18 102/55 L 95 01/09/23 13:10 36.7 C 85 20 120/65 92 01/09/23 13:00 82 15 101/53 L 92 01/09/23 12:40 87 20 106/47 L 94 01/09/23 12:50 86 16 96/50 L 93 01/09/23 12:30 85 15 108/67 94 01/09/23 12:20 82 14 120/57 L 93 01/09/23 12:11 36.0 C L 90 16 122/60 92 01/09/23 08:04 36.7 C 86 16 128/68 98 O2 Del Method O2 Flow Rate 01/09/23 14:05 Nasal Cannula 3 01/09/23 13:35 Nasal Cannula 3 01/09/23 13:10 Nasal Cannula 3 01/09/23 13:00 Nasal Cannula 3 01/09/23 12:40 Nasal Cannula 3 01/09/23 12:50 Nasal Cannula 3 01/09/23 12:30 Nasal Cannula 3 01/09/23 12:20 Nasal Cannula 3 01/09/23 12:11 Nasal Cannula 3 01/09/23 08:04 Room Air Diagnostic Findings Lumbar Spine X-Ray 01/09/23 00:00 FL lumbar spine 2-3V CLINICAL HISTORY: L4-S1 Decompression and Fusion COMPARISON STUDY: None. FLUOROSCOPY TIME: 24 seconds. Ka, r: 17.80 mGy FLUOROSCOPIC IMAGES: 2 FINDINGS: Fluoroscopy was provided during L4-L5 discectomy. Posterior decompression is noted. There are bilateral pedicle screws at the L4, L5 and S1 levels with interconnecting rods. IMPRESSION: Fluoroscopy provided during L4-L5 discectomy with posterior decompression and L4-S1 pedicle screw fusion. ACT 112: Negative or not required by law. Electronically signed by: Twan Walker M.D. 01/09/2023 12:50 PM
[2023-01-09] MEDS: LACTATED RINGER'S 1,000 ML IV SCH (15:03)
[2023-01-09] MEDS: ACETAMINOPHEN 500 MG TAB PO PRN (16:58)
[2023-01-09] MEDS: ceFAZolin 2000MG 2,000 MG/15 ML SYR IV SCH (17:04)
[2023-01-09] MEDS ORDERED: busPIRone 5 MG TAB PO SCH (21:00)
[2023-01-09] MEDS: DOCUSATE SODIUM/SENNA 50/8.6MG TAB PO SCH (21:33)
[2023-01-10] MEDS: LACTATED RINGER'S 1,000 ML IV SCH (00:28)
[2023-01-10] MEDS: oxyCODONE HCL IR 5 MG TAB (IMMEDIATE RELEASE) PO PRN ×3 (03:50→18:35)
[2023-01-10] MEDS: ceFAZolin 2000MG 2,000 MG/15 ML SYR IV SCH (03:52)
[2023-01-10] MEDS ORDERED: COUGH DROP (SUGAR FREE) LOZ 24 LOZ/1 BOX BUCCAL ONE (04:02)
[2023-01-10] MEDS: POLYETHYLENE (MIRALAX) 17 GM PACK PO SCH ×4 (06:11→23:18)
[2023-01-10 06:34] LABS: Basophils # (auto) 0.01 K/uL (0.00-0.20); Basophils % (auto) 0.1 %; Eosinophils # (auto) 0.02 K/uL (0.00-0.50); Eosinophils % (auto) 0.2 %; Hematocrit (blood only) 34.4 % (37.0-47.0); Hemoglobin 11.3 g/dl (12.0-16.0); Immature Granulocytes # (auto) 0.05 K/uL (0.01-0.20); Immature Granulocytes % (auto) 0.5 %; Lymphocytes # (auto) 1.46 K/uL (1.20-3.40); Lymphocytes % (auto) 14.3 %; Mean Corpuscular Hemoglobin 28.2 pg (25.0-34.0); Mean Corpuscular Hgb Conc 32.8 g/dL (32.0-36.0); Mean Corpuscular Volume 85.8 fL (80.0-100.0); Mean Platelet Volume 9.4 fL (9.4-12.4); Monocytes # (auto) 0.93 K/uL (0.11-0.59); Monocytes % (auto) 9.1 %; Neutrophils # (auto) 7.73 K/uL (1.40-6.50); Neutrophils % (auto) 75.8 %; Platelet Count 232 K/uL (130-400); RDW Coefficient of Variation 14.2 % (11.5-14.5); RDW Standard Deviation 44.5 fL (36.4-46.3); Red Blood Count 4.01 M/uL (4.20-5.40)
[2023-01-10 07:05] LABS: Calcium 8.6 mg/dl (8.6-10.3); Creatinine Clr Calc Pharmacy 67.3 ml/min; Est GFR (African American) 96.9 ml/min; Est GFR (Non-African American) 83.6 ml/min; Potassium 4.2 mmol/L (3.5-5.1)
[2023-01-10] MEDS: ASPIRIN 81 MG ECTAB PO SCH (08:36)
[2023-01-10] MEDS: CHOLECALCIFEROL 1,000 UNITS 25 MCG TAB PO SCH (08:37)
[2023-01-10] MEDS: MULTIVITAMIN TAB PO SCH (08:37)
[2023-01-10] MEDS: lisinopril 10 MG TAB PO SCH (08:37)
[2023-01-10] MEDS: dexAMETHasone 6 MG in SYRINGE 0 ML IV SCH (08:40)
--- NOTE | 2023-01-10 10:29 | Orthopedic Progress Note ---
Date of Service January 10, 2023 Assessment & Plan (1) Neurogenic claudication due to lumbar spinal stenosis: Plan: At this time initiate physical therapy monitor GORAN output anticipate discharge early next week. Admission and Anticipated Discharge Date Admission Date: January 09, 2023 Subjective Back pain controlled leg pain markedly improved Physical Exam Physical Exam: Patient is comfortable. She has good strength testing. Results & Data Vital Signs (Past 12 Hours) Vital Signs Temp Pulse Resp BP BP Pulse Ox O2 Del Method 01/10/23 08:35 90 106/60 01/10/23 07:50 36.8 C 75 16 109/61 95 Room Air 01/10/23 04:03 36.5 C 70 18 104/62 94 Room Air 01/09/23 23:30 36.6 C 71 18 103/59 L 95 Room Air
--- NOTE | 2023-01-10 13:53 | Hospitalist Progress Note ---
Date of Service January 10, 2023 Assessment & Plan (1) Neurogenic claudication due to lumbar spinal stenosis: (2) HTN, goal below 140/80: (3) Prediabetes: (4) Anxiety and depression: Plan Ms. Almodovar is a 77-year-old female who presented to the ED for an elective surgical procedure under the care of Dr. Baker. Patient underwent L4- S1 decompression and fusion surgery today after failed conservative outpatient measures taken. Intraoperatively EBL 100 mL. Additional PMH includes HTN, HLD, prediabetes, and anxiety and depression. No history of blood clots or bleeding disorder. Preop ECG reviewed normal sinus rhythm without ectopy. She had an admission 08/18/22-08/20/22 with pancreatitis that was treated conservatively with antibiotics. No history of blood clots or bleeding disorder. Preop ECG normal sinus rhythm and chest x-ray without cardiopulmonary disease. Post operative lumbar x-ray: Fluoroscopy provided during L4-L5 discectomy with posterior decompression and L4-S1 pedicle screw fusion. Neurogenic claudication due to lumbar spinal stenosis: s/p decompression and fusion with Dr. Baker. On 01/09/2023 Per ortho for pain control, wound care, anticoagulation and activities. Monitor H&H, preop hemoglobin 13.3 on 12/24/22. Continue incentive spirometry; demonstrated appropriate use PT/OT when appropriate Minimal back pain without radiation-management as per Ortho HTN: Chronic stable Takes lisinopril; continue Preop creatinine 0.69 Check BMP in AM.Remain unremarkable and the blood pressure is controlled Anxiety and depression: Chronic stable Was recently prescribed BuSpar (12/2222); reports has not taken it. Will hold since she has not started it Denies any acute anxiety and/or delirium Prediabetes: Chronic stable Hemoglobin A1c 6.2 during preop testing Does not take any antidiabetic medications Rufe-pbeazpokim-mdmoy sugar remains stable Disposition: PCP: Dr. Germain CODE STATUS: Full code VTE prophylaxis: Per admitting team Admission and Anticipated Discharge Date Admission Date: January 09, 2023 Subjective 01/10/2023 The patient was seen and examined in medical floor She is a status post lumbar decompression fusion Complains pain at the back but does not have any radiculopathic symptoms Denies any other associated symptoms Review of Systems Review of Systems: All systems reviewed and are unremarkable except as noted below Musculoskeletal: Lumbar back pain without radiation Physical Exam Physical Exam: Lying in bed without any acute distress Constitutional: well developed, well nourished, + ill appearing and + obese Eyes: PERRL, conjunctivae normal, anicteric sclerae ENMT: external ear and nose normal, oropharynx normal Neck: trachea midline, no thyromegaly Respiratory: no respiratory distress Auscultation: lungs clear to auscultation bilaterally Cardiovascular: Rate/Rhythm: regular rate and regular rhythm; not tachycardic Heart Sounds: normal S1 and normal S2; no murmur Extremities: no edema Gastrointestinal (Abdomen): Inspection/Auscultation: normal bowel sounds; abdomen not distended Percussion/Palpation: abdomen soft; abdomen nontender Musculoskeletal: No acute arthritis involving any of the joint Neurologic: normal touch/pain/proprioception and moves all extremities; no focal motor deficits Psychiatric: A+Ox3, euthymic affect Lymphatic: no cervical or axillary lymphadenopathy Results & Data Results & Data Vital Signs (Past 12 Hours) Vital Signs Temp Pulse Resp BP BP Pulse Ox O2 Del Method 01/10/23 08:35 90 106/60 01/10/23 07:50 36.8 C 75 16 109/61 95 Room Air 01/10/23 04:03 36.5 C 70 18 104/62 94 Room Air Laboratory Results Short CBC 01/10/23 Range/Units 05:39 WBC 10.20 (4.8-10.8) K/ul Hgb 11.3 L (12.0-16.0) g/dl Hct 34.4 L (37.0-47.0) % Plt Count 232 (130-400) K/uL BMP 01/10/23 05:39 Sodium 140 Potassium 4.2 Chloride 108 H Carbon Dioxide 26 BUN 14 Creatinine 0.70 Glucose 103 H Calcium 8.6 Medications Administered Current Inpatient Medications Acetaminophen (Acetaminophen 500 Mg Tab) 1,000 mg PO Q8H PRN PRN Reason: MILD Pain Scale 1,2,3 & Pre PT Stop: 02/08/23 13:48 Last Admin: 01/09/23 16:58 Dose: 1,000 mg Al Hydrox/Mg Hydrox/Simethicone (Aluminum/Magnesium Susp 30 Ml Udc) 30 ml PO Q6H PRN PRN Reason: Dyspepsia Stop: 02/08/23 13:48 Albuterol (Albuterol Hfa 8 Gm Inhaler) 1 puffs INH Q6H PRN; Protocol PRN Reason: dust or animal dander Stop: 02/08/23 14:13 Aspirin (Aspirin 81 Mg Ectab) 81 mg PO QAM [facility] Stop: 02/09/23 08:59 Last Admin: 01/10/23 08:36 Dose: 81 mg Bisacodyl (Bisacodyl 10 Mg Supp) 10 mg [place] DAILY PRN PRN Reason: Constipation Stop: 02/08/23 13:48 Buspirone HCl (Buspirone 5 Mg Tab) 5 mg PO BID [facility] Stop: 02/08/23 20:59 Last Admin: 01/09/23 21:32 Dose: Not Given Diphenhydramine HCl (Diphenhydramine Capsule 25 Mg Cap) 25 mg PO Q6H PRN PRN Reason: Allergic Rhinitis/Insomnia Stop: 02/08/23 13:48 Famotidine (Famotidine 20 Mg Tab) 20 mg PO Q12H PRN PRN Reason: Dyspepsia Stop: 02/08/23 13:48 Hydromorphone HCl (Hydromorphone Inj 0.5 Mg/0.5 Ml Syr) 0.5 mg IV Q3H PRN PRN Reason: MODERATE Pain (Scale 4,5,6) & Pre PT Stop: 01/23/23 13:48 Hydromorphone HCl (Hydromorphone Inj 1 Mg/Ml Syringe) 1 mg IV Q3H PRN PRN Reason: SEVERE Pain (Scale 7,8,9,10) Stop: 01/23/23 13:48 Hydroxyzine HCl (Hydroxyzine Hcl 25 Mg Tab) 25 mg PO Q8H PRN PRN Reason: Anxiety Stop: 02/08/23 13:48 Promethazine HCl 12.5 mg/ (Sodium Chloride) 50.5 mls @ 202 mls/hr IV Q6H PRN PRN Reason: Nausea &/or Vomiting Stop: 02/08/23 13:48 Last Infusion: 01/09/23 17:44 Dose: Infused Dexamethasone 6 mg/ Syringe 1.5 mls @ 1 mls/min IV DAILY [facility] Stop: 01/12/23 09:02 Last Admin: 01/10/23 08:40 Dose: 1 mls/min Influenza Virus Vaccine Quadrival (Do Not Administer Flu Vaccine) 1 each N/A PRN PRN PRN Reason: Notification Stop: 02/08/23 13:48 Lisinopril (Lisinopril 10 Mg Tab) 10 mg PO QAM [facility] Stop: 02/09/23 08:59 Last Admin: 01/10/23 08:37 Dose: Not Given Lorazepam (Lorazepam 0.5 Mg Tab) 0.5 mg PO Q8H PRN PRN Reason: Sedation/Anxiety Stop: 02/08/23 13:48 Lorazepam (Lorazepam 2 Mg/1 Ml Vial) 0.5 mg IV Q8H PRN PRN Reason: Sedation/Anxiety Stop: 02/08/23 13:48 Magnesium Hydroxide (Magnesium Hydroxide Susp 30 Ml Udc) 30 ml PO Q24H PRN PRN Reason: Constipation Stop: 02/08/23 13:48 Metoclopramide HCl (Metoclopramide Hcl Inj 5 Mg/Ml 2 Ml Vial) 10 mg IV Q6H PRN PRN Reason: Nausea &/or Vomiting Stop: 02/08/23 13:48 Multivitamins (Multivitamin Tab) 1 tab PO [facility] Stop: 02/09/23 08:59 Last Admin: 01/10/23 08:37 Dose: 1 tab Naloxone HCl (Naloxone Hcl 0.4 Mg/1 Ml Vial/Carp) 0.1 mg IV Q5M PRN PRN Reason: Oversedation/Resp depression Stop: 02/08/23 13:48 Ondansetron HCl (Ondansetron Inj 2 Mg/Ml 2 Ml Vial) 4 mg IV Q6H PRN PRN Reason: Nausea &/or Vomiting Stop: 02/08/23 13:48 Ondansetron HCl (Ondansetron 4 Mg Od Tab) 4 mg PO Q6H PRN PRN Reason: Nausea Stop: 02/08/23 13:48 Last Admin: 01/09/23 14:28 Dose: 4 mg Oxycodone HCl (Oxycodone Hcl Ir 5 Mg Tab (Immediate Release)) 5 - 10 mg PO Q4H PRN PRN Reason: Pain & Pre PT Stop: 01/23/23 13:48 Last Admin: 01/10/23 08:49 Dose: 10 mg Pneumococcal Polyvalent Vaccine (Do Not Administer Pneumococcal Vaccine) 1 each N/A PRN PRN PRN Reason: Notification Stop: 02/08/23 13:48 Polyethylene Glycol (Polyethylene (Miralax) 17 Gm Pack) 17 gm PO Q6 [facility] Stop: 02/09/23 05:59 Last Admin: 01/10/23 12:36 Dose: 17 gm Senna/Docusate Sodium (Docusate Sodium/Senna 50/8.6mg Tab) 2 tab PO HS [facility] Stop: 02/08/23 20:59 Last Admin: 01/09/23 21:33 Dose: 2 tab Sodium Biphosphate/Sodium Phosphate (Sod Phosphate/Sod Biphosphate Enema 132 Ml Btl) 132 ml SC ONE PRN PRN Reason: Constipation Stop: 02/08/23 13:48 Tramadol HCl (Tramadol Hcl 50 Mg Tablet) 50 - 100 mg PO Q4H PRN PRN Reason: Moderate-Severe pain & Pre PT Stop: 02/08/23 13:48 Vitamin D (Cholecalciferol 1,000 Units 25 Mcg Tab) 1,000 units PO QAM [facility] Stop: 02/09/23 08:59 Last Admin: 01/10/23 08:37 Dose: 1,000 units
[2023-01-10] MEDS: DOCUSATE SODIUM/SENNA 50/8.6MG TAB PO SCH (20:44)
[2023-01-11] MEDS: traMADol HCL 50 MG TABLET PO PRN (01:39)
[2023-01-11] MEDS: ACETAMINOPHEN 500 MG TAB PO PRN (05:39)
[2023-01-11] MEDS: POLYETHYLENE (MIRALAX) 17 GM PACK PO SCH ×4 (05:40→23:24)
--- NOTE | 2023-01-11 07:06 | Orthopedic Progress Note ---
Date of Service January 11, 2023 Assessment & Plan (1) Neurogenic claudication due to lumbar spinal stenosis: Plan: Patient is doing well postoperative day #2. We will continue GI DVT prophylaxis as well as pain control measures. We will have her ambulate with physical therapy today. If all goes well we will likely discharge her to home tomorrow. Admission and Anticipated Discharge Date Admission Date: January 09, 2023 Subjective Patient was seen bedside in room 310. She is resting comfortably. Her back pain is better than it was prior to her surgery. Her legs are improving as well. She has not yet had a bowel movement. She is tolerating p.o. well. She denies any other numbness, tingling, or paresthesias. Physical Exam Physical Exam: On exam she is alert and oriented. She answers questions appropriately. Her calves are supple and nontender abdomen soft and nontender. GORAN drain is placed out 30 cc on the previous shift. Her dressing is clean dry and intact. Strength and sensation are both intact. Results & Data Vital Signs (Past 12 Hours) Vital Signs Temp Pulse Resp BP Pulse Ox O2 Del Method 01/10/23 20:45 Room Air 01/10/23 20:45 36.9 C 74 16 133/65 96 Room Air
[2023-01-11 07:14] LABS: Basophils # (auto) 0.03 K/uL (0.00-0.20); Basophils % (auto) 0.3 %; Eosinophils # (auto) 0.06 K/uL (0.00-0.50); Eosinophils % (auto) 0.6 %; Hematocrit (blood only) 34.1 % (37.0-47.0); Hemoglobin 11.1 g/dl (12.0-16.0); Immature Granulocytes # (auto) 0.08 K/uL (0.01-0.20); Immature Granulocytes % (auto) 0.8 %; Lymphocytes # (auto) 2.44 K/uL (1.20-3.40); Lymphocytes % (auto) 23.6 %; Mean Corpuscular Hemoglobin 28.5 pg (25.0-34.0); Mean Corpuscular Hgb Conc 32.6 g/dL (32.0-36.0); Mean Corpuscular Volume 87.4 fL (80.0-100.0); Mean Platelet Volume 9.6 fL (9.4-12.4); Monocytes # (auto) 1.16 K/uL (0.11-0.59); Monocytes % (auto) 11.2 %; Neutrophils # (auto) 6.59 K/uL (1.40-6.50); Neutrophils % (auto) 63.5 %; Platelet Count 220 K/uL (130-400); RDW Coefficient of Variation 14.5 % (11.5-14.5); RDW Standard Deviation 46.3 fL (36.4-46.3); White Blood Count 10.36 K/ul (4.8-10.8)
[2023-01-11] MEDS: dexAMETHasone 6 MG in SYRINGE 0 ML IV SCH (08:04)
[2023-01-11] MEDS: ASPIRIN 81 MG ECTAB PO SCH (08:10)
[2023-01-11] MEDS: CHOLECALCIFEROL 1,000 UNITS 25 MCG TAB PO SCH (08:10)
[2023-01-11] MEDS: MULTIVITAMIN TAB PO SCH (08:11)
[2023-01-11] MEDS: lisinopril 10 MG TAB PO SCH (08:13)
[2023-01-11 08:35] LABS: BUN Creatinine Ratio 22.4 (10-20); Calcium 8.4 mg/dl (8.6-10.3); Creatinine Clr Calc Pharmacy 70.3 ml/min; Est GFR (African American) 98.3 ml/min; Est GFR (Non-African American) 84.8 ml/min; Potassium 3.8 mmol/L (3.5-5.1)
--- NOTE | 2023-01-11 11:58 | Hospitalist Progress Note ---
Date of Service January 11, 2023 Assessment & Plan (1) Neurogenic claudication due to lumbar spinal stenosis: (2) HTN, goal below 140/80: (3) Prediabetes: (4) Anxiety and depression: Plan Ms. Almodovar is a 77-year-old female who presented to the ED for an elective surgical procedure under the care of Dr. Baker. Patient underwent L4- S1 decompression and fusion surgery today after failed conservative outpatient measures taken. Intraoperatively EBL 100 mL. Additional PMH includes HTN, HLD, prediabetes, and anxiety and depression. No history of blood clots or bleeding disorder. Preop ECG reviewed normal sinus rhythm without ectopy. She had an admission 08/18/22-08/20/22 with pancreatitis that was treated conservatively with antibiotics. No history of blood clots or bleeding disorder. Preop ECG normal sinus rhythm and chest x-ray without cardiopulmonary disease. Post operative lumbar x-ray: Fluoroscopy provided during L4-L5 discectomy with posterior decompression and L4-S1 pedicle screw fusion. Neurogenic claudication due to lumbar spinal stenosis: s/p decompression and fusion with Dr. Baker. On 01/09/2023 Per ortho for pain control, wound care, anticoagulation and activities. Monitor H&H, preop hemoglobin 13.3 on 12/24/22. Continue incentive spirometry; demonstrated appropriate use PT/OT when appropriate Minimal back pain without radiation-management as per Ortho Reviewed her CBC and PRP with electrolytes-remains stable HTN: Chronic stable Takes lisinopril; continue Preop creatinine 0.69 Check BMP in AM.Remain unremarkable and the blood pressure is controlled Anxiety and depression: Chronic stable Was recently prescribed BuSpar (12/2222); reports has not taken it. Will hold since she has not started it Denies any acute anxiety and/or delirium Prediabetes: Chronic stable Hemoglobin A1c 6.2 during preop testing Does not take any antidiabetic medications Twkv-uxvbsftwsj-tyskr sugar remains stable Blood sugar remains stable Disposition: PCP: Dr. Germain CODE STATUS: Full code VTE prophylaxis: Per admitting team Medically stable to be discharged Admission and Anticipated Discharge Date Admission Date: January 09, 2023 Subjective 01/10/2023 The patient was seen and examined in medical floor She is a status post lumbar decompression fusion Complains pain at the back but does not have any radiculopathic symptoms Denies any other associated symptoms 01/11/2023 The patient was seen and examined in medical floor Her pain in the lower back is controlled with pain medications and her radiculopathic symptoms have resolved She has been ambulating in the hallway without any significant discomfort Denies any other symptoms Review of Systems Review of Systems: All systems reviewed and are unremarkable except as noted below Musculoskeletal: Lumbar back pain without radiation Physical Exam Physical Exam: Lying in bed without any acute distress Constitutional: well developed, well nourished, + ill appearing and + obese Eyes: PERRL, conjunctivae normal, anicteric sclerae ENMT: external ear and nose normal, oropharynx normal Neck: trachea midline, no thyromegaly Respiratory: no respiratory distress Auscultation: lungs clear to auscultat ion bilaterally Cardiovascular: Rate/Rhythm: regular rate and regular rhythm; not tachycardic Heart Sounds: normal S1 and normal S2; no murmur Extremities: no edema Gastrointestinal (Abdomen): Inspection/Auscultation: normal bowel sounds; abdomen not distended Percussion/Palpation: abdomen soft; abdomen nontender Neurologic: normal touch/pain/proprioception and moves all extremities; no focal motor deficits Psychiatric: A+Ox3, euthymic affect Lymphatic: no cervical or axillary lymphadenopathy Results & Data Results & Data Vital Signs (Past 12 Hours) Vital Signs Temp Pulse Resp BP Pulse Ox O2 Del Method 01/11/23 07:26 36.5 C 69 16 114/70 94 Room Air Laboratory Results Short CBC 01/11/23 Range/Units 06:35 WBC 10.36 (4.8-10.8) K/ul Hgb 11.1 L (12.0-16.0) g/dl Hct 34.1 L (37.0-47.0) % Plt Count 220 (130-400) K/uL BMP 01/11/23 06:35 Sodium 136 Potassium 3.8 Chloride 103 Carbon Dioxide 25 BUN 15 Creatinine 0.67 Glucose 125 H Calcium 8.4 L Medications Administered Current Inpatient Medications Acetaminophen (Acetaminophen 500 Mg Tab) 1,000 mg PO Q8H PRN PRN Reason: MILD Pain Scale 1,2,3 & Pre PT Stop: 02/08/23 13:48 Last Admin: 01/11/23 05:39 Dose: 1,000 mg Al Hydrox/Mg Hydrox/Simethicone (Aluminum/Magnesium Susp 30 Ml Udc) 30 ml PO Q6H PRN PRN Reason: Dyspepsia Stop: 02/08/23 13:48 Albuterol (Albuterol Hfa 8 Gm Inhaler) 1 puffs INH Q6H PRN; Protocol PRN Reason: dust or animal dander Stop: 02/08/23 14:13 Aspirin (Aspirin 81 Mg Ectab) 81 mg PO QAM [facility] Stop: 02/09/23 08:59 Last Admin: 01/11/23 08:10 Dose: 81 mg Bisacodyl (Bisacodyl 10 Mg Supp) 10 mg [place] DAILY PRN PRN Reason: Constipation Stop: 02/08/23 13:48 Buspirone HCl (Buspirone 5 Mg Tab) 5 mg PO BID COUNTS INCLUDE 234 BEDS AT [facility] Stop: 02/08/23 20:59 Last Admin: 01/09/23 21:32 Dose: Not Given Diphenhydramine HCl (Diphenhydramine Capsule 25 Mg Cap) 25 mg PO Q6H PRN PRN Reason: Allergic Rhinitis/Insomnia Stop: 02/08/23 13:48 Famotidine (Famotidine 20 Mg Tab) 20 mg PO Q12H PRN PRN Reason: Dyspepsia Stop: 02/08/23 13:48 Hydromorphone HCl (Hydromorphone Inj 0.5 Mg/0.5 Ml Syr) 0.5 mg IV Q3H PRN PRN Reason: MODERATE Pain (Scale 4,5,6) & Pre PT Stop: 01/23/23 13:48 Hydromorphone HCl (Hydromorphone Inj 1 Mg/Ml Syringe) 1 mg IV Q3H PRN PRN Reason: SEVERE Pain (Scale 7,8,9,10) Stop: 01/23/23 13:48 Hydroxyzine HCl (Hydroxyzine Hcl 25 Mg Tab) 25 mg PO Q8H PRN PRN Reason: Anxiety Stop: 02/08/23 13:48 Promethazine HCl 12.5 mg/ (Sodium Chloride) 50.5 mls @ 202 mls/hr IV Q6H PRN PRN Reason: Nausea &/or Vomiting Stop: 02/08/23 13:48 Last Infusion: 01/09/23 17:44 Dose: Infused Dexamethasone 6 mg/ Syringe 1.5 mls @ 1 mls/min IV DAILY [facility] Stop: 01/12/23 09:02 Last Admin: 01/11/23 08:04 Dose: 1 mls/min Influenza Virus Vaccine Quadrival (Do Not Administer Flu Vaccine) 1 each N/A PRN PRN PRN Reason: Notification Stop: 02/08/23 13:48 Lisinopril (Lisinopril 10 Mg Tab) 10 mg PO QAM COUNTS INCLUDE 234 BEDS AT THE [facility] Stop: 02/09/23 08:59 Last Admin: 01/11/23 08:13 Dose: Not Given Lorazepam (Lorazepam 0.5 Mg Tab) 0.5 mg PO Q8H PRN PRN Reason: Sedation/Anxiety Stop: 02/08/23 13:48 Lorazepam (Lorazepam 2 Mg/1 Ml Vial) 0.5 mg IV Q8H PRN PRN Reason: Sedation/Anxiety Stop: 02/08/23 13:48 Magnesium Hydroxide (Magnesium Hydroxide Susp 30 Ml Udc) 30 ml PO Q24H PRN PRN Reason: Constipation Stop: 02/08/23 13:48 Metoclopramide HCl (Metoclopramide Hcl Inj 5 Mg/Ml 2 Ml Vial) 10 mg IV Q6H PRN PRN Reason: Nausea &/or Vomiting Stop: 02/08/23 13:48 Multivitamins (Multivitamin Tab) 1 tab PO [facility] Stop: 02/09/23 08:59 Last Admin: 01/11/23 08:11 Dose: 1 tab Naloxone HCl (Naloxone Hcl 0.4 Mg/1 Ml Vial/Carp) 0.1 mg IV Q5M PRN PRN Reason: Oversedation/Resp depression Stop: 02/08/23 13:48 Ondansetron HCl (Ondansetron Inj 2 Mg/Ml 2 Ml Vial) 4 mg IV Q6H PRN PRN Reason: Nausea &/or Vomiting Stop: 02/08/23 13:48 Ondansetron HCl (Ondansetron 4 Mg Od Tab) 4 mg PO Q6H PRN PRN Reason: Nausea Stop: 02/08/23 13:48 Last Admin: 01/09/23 14:28 Dose: 4 mg Oxycodone HCl (Oxycodone Hcl Ir 5 Mg Tab (Immediate Release)) 5 - 10 mg PO Q4H PRN PRN Reason: Pain & Pre PT Stop: 01/23/23 13:48 Last Admin: 01/10/23 18:35 Dose: 10 mg Pneumococcal Polyvalent Vaccine (Do Not Administer Pneumococcal Vaccine) 1 each N/A PRN PRN PRN Reason: Notification Stop: 02/08/23 13:48 Polyethylene Glycol (Polyethylene (Miralax) 17 Gm Pack) 17 gm PO Q6 COUNTS INCLUDE 234 BEDS AT THE [facility] Stop: 02/09/23 05:59 Last Admin: 01/11/23 05:40 Dose: 17 gm Senna/Docusate Sodium (Docusate Sodium/Senna 50/8.6mg Tab) 2 tab PO HS [facility] Stop: 02/08/23 20:59 Last Admin: 01/10/23 20:44 Dose: 2 tab Sodium Biphosphate/Sodium Phosphate (Sod Phosphate/Sod Biphosphate Enema 132 Ml Btl) 132 ml [place] ONE PRN PRN Reason: Constipation Stop: 02/08/23 13:48 Tramadol HCl (Tramadol Hcl 50 Mg Tablet) 50 - 100 mg PO Q4H PRN PRN Reason: Moderate-Severe pain & Pre PT Stop: 02/08/23 13:48 Last Admin: 01/11/23 01:39 Dose: 50 mg Vitamin D (Cholecalciferol 1,000 Units 25 Mcg Tab) 1,000 units PO QAM [facility] Stop: 02/09/23 08:59 Last Admin: 01/11/23 08:10 Dose: 1,000 units
[2023-01-11] MEDS: DOCUSATE SODIUM/SENNA 50/8.6MG TAB PO SCH (20:57)
[2023-01-12] MEDS: POLYETHYLENE (MIRALAX) 17 GM PACK PO SCH ×3 (06:34→17:06)
[2023-01-12] MEDS ORDERED: SOD PHOSPHATE/SOD BIPHOSPHATE ENEMA 132 ML BTL PR STA (07:40)
[2023-01-12] MEDS: CHOLECALCIFEROL 1,000 UNITS 25 MCG TAB PO SCH (09:40)
[2023-01-12] MEDS: ASPIRIN 81 MG ECTAB PO SCH (09:40)
[2023-01-12] MEDS: dexAMETHasone 6 MG in SYRINGE 0 ML IV SCH (09:40)
[2023-01-12] MEDS: lisinopril 10 MG TAB PO SCH (09:40)
[2023-01-12] MEDS: MULTIVITAMIN TAB PO SCH (09:40)
--- NOTE | 2023-01-12 10:45 | Orthopedic Progress Note ---
Date of Service January 12, 2023 Assessment & Plan (1) Neurogenic claudication due to lumbar spinal stenosis: Plan: This time continue physical therapy monitor GORAN output. There is a CAT scan scheduled of her abdomen to rule out a recurrence of the diverticulitis. I will keep her overnight to ensure that she is progressing appropriately and anticipate discharge tomorrow as long as the diverticulitis is not an issue. Admission and Anticipated Discharge Date Admission Date: January 09, 2023 Subjective Patient's back pain is controlled leg symptoms markedly improved. She did have an enema this morning is in the mild bowels are working much better. Physical Exam Physical Exam: On exam patient is in the chair at the bedside. Skin strength testing. GORAN drain is functional. Results & Data Vital Signs (Past 12 Hours) Vital Signs Temp Pulse Resp BP Pulse Ox O2 Del Method 01/12/23 07:27 36.4 C L 66 16 132/65 95 Room Air 01/11/23 23:29 136/76
[2023-01-12] MEDS: ACETAMINOPHEN 500 MG TAB PO PRN ×2 (12:13→20:25)
--- NOTE | 2023-01-12 13:04 | CT Scan Report ---
ABDOMEN AND PELVIS CT WITHOUT CONTRAST CT DOSE: 1165.35 mGy.cm HISTORY: Acute pain,r/o Diverculitis TECHNIQUE: Multiaxial CT images of the abdomen and pelvis were performed without contrast. A dose lo wering technique was utilized adhering to the principles of ALARA. COMPARISON STUDY: Abdomen and pelvis CT 08/17/2022. FINDINGS: The lung bases are clear. No pneumoperitoneum. No pneumatosis. Posterior fusion hardware se en within the lower lumbar spine. Small fat-containing umbilical hernia. Mild pelvic floor collapse. Mild hepatic steatosis again noted. The unenhanced gallbladder, pancreas, spleen, and adrenal glands are unremarkable. Multiple bilateral peripelvic renal cysts most pronounced on the left, unchanged. N o renal or ureteral stones. No hydronephrosis. No retroperitoneal lymphadenopathy. Mild calcified chauncey que within the normal caliber abdominal aorta. No pelvic free fluid or pelvic lymphadenopathy. Normal bladder. Prior hysterectomy. Suboptimal evaluation for bowel pathology due to the lack of intravenou s and oral contrast. Thickening within the proximal sigmoid colon with pericolonic fat stranding and a few inflamed diverticula consistent with an acute diverticulitis. No perforation or abscess at this time. Moderate fecal retention. No dilated loops of bowel to suggest an obstruction. IMPRESSION: 1. Acute sigmoid diverticulitis. No perforation or abscess at this time. 2. No evidence for bowel obstruction. 3. Additional findings as described above. ACT 112: Negative or not required by law. Electronically signed by: Trent Lerner M.D. 01/12/2023 1:01 PM
[2023-01-12] MEDS: AMPICILLIN/SULBACTAM SOD 3,000 MG in 0.9 % SODIUM CHLORIDE 100 ML IV SCH ×3 (14:17→20:22)
--- NOTE | 2023-01-12 14:28 | Hospitalist Progress Note ---
Date of Service January 12, 2023 Assessment & Plan (1) Neurogenic claudication due to lumbar spinal stenosis: (2) HTN, goal below 140/80: (3) Prediabetes: (4) Anxiety and depression: Plan Ms. Almodovar is a 77-year-old female who presented to the ED for an elective surgical procedure under the care of Dr. Baker. Patient underwent L4- S1 decompression and fusion surgery today after failed conservative outpatient measures taken. Intraoperatively EBL 100 mL. Additional PMH includes HTN, HLD, prediabetes, and anxiety and depression. No history of blood clots or bleeding disorder. Preop ECG reviewed normal sinus rhythm without ectopy. She had an admission 08/18/22-08/20/22 with pancreatitis that was treated conservatively with antibiotics. No history of blood clots or bleeding disorder. Preop ECG normal sinus rhythm and chest x-ray without cardiopulmonary disease. Post operative lumbar x-ray: Fluoroscopy provided during L4-L5 discectomy with posterior decompression and L4-S1 pedicle screw fusion. Neurogenic claudication due to lumbar spinal stenosis: s/p decompression and fusion with Dr. Baker. On 01/09/2023 Per ortho for pain control, wound care, anticoagulation and activities. Monitor H&H, preop hemoglobin 13.3 on 12/24/22. Continue incentive spirometry; demonstrated appropriate use PT/OT when appropriate Minimal back pain without radiation-management as per Ortho Reviewed her CBC and PRP with electrolytes-remains stable Acute sigmoid diverticulitis Presented with acute left lower quadrant pain since this morning CT scan of the abdomen pelvis documented to be acute sigmoid diverticulitis without any perforation and/or microabscess She will be started him on intravenous Unasyn and Augmentin on the way home Likely to be in the hospital tomorrow and possible discharge thereafter tomorrow if symptoms are better HTN: Chronic stable Takes lisinopril; continue Preop creatinine 0.69 Check BMP in AM.Remain unremarkable and the blood pressure is controlled Anxiety and depression: Chronic stable Was recently prescribed BuSpar (12/2222); reports has not taken it. Will hold since she has not started it Denies any acute anxiety and/or delirium Prediabetes: Chronic stable Hemoglobin A1c 6.2 during preop testing Does not take any antidiabetic medications Acwi-mzmzymtvmq-kphso sugar remains stable Blood sugar remains stable Disposition: PCP: Dr. Germain CODE STATUS: Full code VTE prophylaxis: Per admitting team Medically stable to be discharged Admission and Anticipated Discharge Date Admission Date: January 09, 2023 Subjective 01/10/2023 The patient was seen and examined in medical floor She is a status post lumbar decompression fusion Complains pain at the back but does not have any radiculopathic symptoms Denies any other associated symptoms 01/11/2023 The patient was seen and examined in medical floor Her pain in the lower back is controlled with pain medications and her radiculopathic symptoms have resolved She has been ambulating in the hallway without any significant discomfort Denies any other symptoms 01/12/2023 The patient was seen and examined in medical floor She complains of severe left lower quadrant pain since this morning Has not had bowel movement since Thursday last and received enema without any improvement of the pain She was wondering if it is due to acute diverticulitis like prior presentation Review of Systems Review of Systems: All systems reviewed and are unremarkable except as noted below Musculoskeletal: Lumbar back pain without radiation Physical Exam Physical Exam: Lying in bed without any acute distress Constitutional: well developed, well nourished, + ill appearing and + obese Eyes: PERRL, conjunctivae normal, anicteric sclerae ENMT: external ear and nose normal, oropharynx normal Neck: trachea midline, no thyromegaly Respiratory: no respiratory distress Auscultation: lungs clear to auscultation bilaterally Cardiovascular: Rate/Rhythm: regular rate and regular rhythm; not tachycardic Heart Sounds: normal S1 and normal S2; no murmur Extremities: no edema Gastrointestinal (Abdomen): Inspection/Auscultation: normal bowel sounds; abdomen not distended Percussion/Palpation: + abdomen tender (Tender in left lower quadrant near to the inguinal area) and abdomen soft Neurologic: normal touch/pain/proprioception and moves all extremities; no focal motor deficits Psychiatric: A+Ox3, euthymic affect Lymphatic: no cervical or axillary lymphadenopathy Results & Data Results & Data Vital Signs (Past 12 Hours) Vital Signs Temp Pulse Resp BP Pulse Ox O2 Del Method 01/12/23 07:27 36.4 C L 66 16 132/65 95 Room Air Medications Administered Current Inpatient Medications Acetaminophen (Acetaminophen 500 Mg Tab) 1,000 mg PO Q8H PRN PRN Reason: MILD Pain Scale 1,2,3 & Pre PT Stop: 02/08/23 13:48 Last Admin: 01/12/23 12:13 Dose: 1,000 mg Al Hydrox/Mg Hydrox/Simethicone (Aluminum/Magnesium Susp 30 Ml Udc) 30 ml PO Q6H PRN PRN Reason: Dyspepsia Stop: 02/08/23 13:48 Albuterol (Albuterol Hfa 8 Gm Inhaler) 1 puffs INH Q6H PRN; Protocol PRN Reason: dust or animal dander Stop: 02/08/23 14:13 Aspirin (Aspirin 81 Mg Ectab) 81 mg PO QAM [facility] Stop: 02/09/23 08:59 Last Admin: 01/12/23 09:40 Dose: Not Given Bisacodyl (Bisacodyl 10 Mg Supp) 10 mg [place] DAILY PRN PRN Reason: Constipation Stop: 02/08/23 13:48 Last Admin: 01/12/23 06:11 Dose: 10 mg Buspirone HCl (Buspirone 5 Mg Tab) 5 mg PO BID [facility] Stop: 02/08/23 20:59 Last Admin: 01/09/23 21:32 Dose: Not Given Diphenhydramine HCl (Diphenhydramine Capsule 25 Mg Cap) 25 mg PO Q6H PRN PRN Reason: Allergic Rhinitis/Insomnia Stop: 02/08/23 13:48 Famotidine (Famotidine 20 Mg Tab) 20 mg PO Q12H PRN PRN Reason: Dyspepsia Stop: 02/08/23 13:48 Hydromorphone HCl (Hydromorphone Inj 0.5 Mg/0.5 Ml Syr) 0.5 mg IV Q3H PRN PRN Reason: MODERATE Pain (Scale 4,5,6) & Pre PT Stop: 01/23/23 13:48 Hydromorphone HCl (Hydromorphone Inj 1 Mg/Ml Syringe) 1 mg IV Q3H PRN PRN Reason: SEVERE Pain (Scale 7,8,9,10) Stop: 01/23/23 13:48 Hydroxyzine HCl (Hydroxyzine Hcl 25 Mg Tab) 25 mg PO Q8H PRN PRN Reason: Anxiety Stop: 02/08/23 13:48 Promethazine HCl 12.5 mg/ (Sodium Chloride) 50.5 mls @ 202 mls/hr IV Q6H PRN PRN Reason: Nausea &/or Vomiting Stop: 02/08/23 13:48 Last Infusion: 01/09/23 17:44 Dose: Infused Ampicillin Sodium/Sulbactam Sodium 3,000 mg/ Sodium Chloride 108 mls @ 200 mls/hr IV Q6H [facility]; Protocol Stop: 01/22/23 13:59 Last Admin: 01/12/23 14:17 Dose: 200 mls/hr Influenza Virus Vaccine Quadrival (Do Not Administer Flu Vaccine) 1 each N/A PRN PRN PRN Reason: Notification Stop: 02/08/23 13:48 Lisinopril (Lisinopril 10 Mg Tab) 10 mg PO [facility] Stop: 02/09/23 08:59 Last Admin: 01/12/23 09:40 Dose: Not Given Lorazepam (Lorazepam 0.5 Mg Tab) 0.5 mg PO Q8H PRN PRN Reason: Sedation/Anxiety Stop: 02/08/23 13:48 Lorazepam (Lorazepam 2 Mg/1 Ml Vial) 0.5 mg IV Q8H PRN PRN Reason: Sedation/Anxiety Stop: 02/08/23 13:48 Magnesium Hydroxide (Magnesium Hydroxide Susp 30 Ml Udc) 30 ml PO Q24H PRN PRN Reason: Constipation Stop: 02/08/23 13:48 Metoclopramide HCl (Metoclopramide Hcl Inj 5 Mg/Ml 2 Ml Vial) 10 mg IV Q6H PRN PRN Reason: Nausea &/or Vomiting Stop: 02/08/23 13:48 Multivitamins (Multivitamin Tab) 1 tab PO [facility] Stop: 02/09/23 08:59 Last Admin: 01/12/23 09:40 Dose: Not Given Naloxone HCl (Naloxone Hcl 0.4 Mg/1 Ml Vial/Carp) 0.1 mg IV Q5M PRN PRN Reason: Oversedation/Resp depression Stop: 02/08/23 13:48 Ondansetron HCl (Ondansetron Inj 2 Mg/Ml 2 Ml Vial) 4 mg IV Q6H PRN PRN Reason: Nausea &/or Vomiting Stop: 02/08/23 13:48 Ondansetron HCl (Ondansetron 4 Mg Od Tab) 4 mg PO Q6H PRN PRN Reason: Nausea Stop: 02/08/23 13:48 Last Admin: 01/09/23 14:28 Dose: 4 mg Oxycodone HCl (Oxycodone Hcl Ir 5 Mg Tab (Immediate Release)) 5 - 10 mg PO Q4H PRN PRN Reason: Pain & Pre PT Stop: 01/23/23 13:48 Last Admin: 01/10/23 18:35 Dose: 10 mg Pneumococcal Polyvalent Vaccine (Do Not Administer Pneumococcal Vaccine) 1 each N/A PRN PRN PRN Reason: Notification Stop: 02/08/23 13:48 Polyethylene Glycol (Polyethylene (Miralax) 17 Gm Pack) 17 gm PO Q6 [facility] Stop: 02/09/23 05:59 Last Admin: 01/12/23 12:11 Dose: Not Given Senna/Docusate Sodium (Docusate Sodium/Senna 50/8.6mg Tab) 2 tab PO HS [facility] Stop: 02/08/23 20:59 Last Admin: 01/11/23 20:57 Dose: 2 tab Sodium Biphosphate/Sodium Phosphate (Sod Phosphate/Sod Biphosphate Enema 132 Ml Btl) 132 ml IL ONE PRN PRN Reason: Constipation Stop: 02/08/23 13:48 Tramadol HCl (Tramadol Hcl 50 Mg Tablet) 50 - 100 mg PO Q4H PRN PRN Reason: Moderate-Severe pain & Pre PT Stop: 02/08/23 13:48 Last Admin: 01/11/23 01:39 Dose: 50 mg Vitamin D (Cholecalciferol 1,000 Units 25 Mcg Tab) 1,000 units PO QAM [facility] Stop: 02/09/23 08:59 Last Admin: 01/12/23 09:40 Dose: Not Given
[2023-01-12] MEDS: DOCUSATE SODIUM/SENNA 50/8.6MG TAB PO SCH (20:22)
[2023-01-12] MEDS: traMADol HCL 50 MG TABLET PO PRN (23:55)
[2023-01-13] MEDS: AMPICILLIN/SULBACTAM SOD 3,000 MG in 0.9 % SODIUM CHLORIDE 100 ML IV SCH ×3 (02:29→13:55)
[2023-01-13 06:15] LABS: Basophils # (auto) 0.04 K/uL (0.00-0.20); Basophils % (auto) 0.5 %; Eosinophils # (auto) 0.22 K/uL (0.00-0.50); Eosinophils % (auto) 2.7 %; Hematocrit (blood only) 35.1 % (37.0-47.0); Hemoglobin 11.4 g/dl (12.0-16.0); Immature Granulocytes # (auto) 0.06 K/uL (0.01-0.20); Immature Granulocytes % (auto) 0.7 %; Lymphocytes # (auto) 2.51 K/uL (1.20-3.40); Lymphocytes % (auto) 30.8 %; Mean Corpuscular Hemoglobin 28.4 pg (25.0-34.0); Mean Corpuscular Hgb Conc 32.5 g/dL (32.0-36.0); Mean Corpuscular Volume 87.5 fL (80.0-100.0); Mean Platelet Volume 9.3 fL (9.4-12.4); Monocytes # (auto) 0.87 K/uL (0.11-0.59); Monocytes % (auto) 10.7 %; Neutrophils # (auto) 4.45 K/uL (1.40-6.50); Neutrophils % (auto) 54.6 %; Platelet Count 286 K/uL (130-400); RDW Standard Deviation 45.3 fL (36.4-46.3); Red Blood Count 4.01 M/uL (4.20-5.40); White Blood Count 8.15 K/ul (4.8-10.8)
[2023-01-13 06:22] LABS: BUN Creatinine Ratio 23.9 (10-20); Calcium 8.5 mg/dl (8.6-10.3); Creatinine Clr Calc Pharmacy 70.3 ml/min; Est GFR (African American) 98.3 ml/min; Est GFR (Non-African American) 84.8 ml/min; Potassium 4.1 mmol/L (3.5-5.1)
[2023-01-13] MEDS: CHOLECALCIFEROL 1,000 UNITS 25 MCG TAB PO SCH (07:42)
[2023-01-13] MEDS: traMADol HCL 50 MG TABLET PO PRN ×2 (07:42→13:11)
[2023-01-13] MEDS: MULTIVITAMIN TAB PO SCH (07:43)
[2023-01-13] MEDS: ASPIRIN 81 MG ECTAB PO SCH (07:43)
[2023-01-13] MEDS: lisinopril 10 MG TAB PO SCH (07:43)
--- NOTE | 2023-01-13 10:12 | Discharge Summary ---
Date of Service January 13, 2023 Admission HPI Per Admitting Provider This is a 77-year-old female presents with chronic persistent back and leg pain. Failing since course of nonoperative care she is here for surgical invention. Principal Diagnosis Lumbar spinal stenosis with neurogenic claudication Discharge Data Allergies Allergy/AdvReac Type Severity Reaction Status Date / Time lidocaine AdvReac Unknown ? caused Verified 01/02/23 14:43 pancreatitis triamcinolone [From Kenalog] AdvReac Unknown ? caused Verified 01/02/23 14:43 pancreatitis Consultations 01/09/23 13:49 Consult Hospitalist Routine Procedures Performed Operation Date: 01/09/23 09:05 Actual Procedures p L4-S1 Decompression and Fusion with Spinal Cord Monitoring(Not Applicable) - Tin Baker DO Ordered Studies 01/09/23 [place] lumbar spine 2-3V Routine 01/12/23 08:56 CT Abd and Pelvis [CT abd pelvis wo con] Urgent Hospital Course (1) Neurogenic claudication due to lumbar spinal stenosis: Patient with limited motion fusion tolerated as well as taken orthopedic for his appendectomy. Postoperative course was steady and consistent improvement throughout her stay. GORAN drain decreasing appropriate. Excellent strength testing. Socially discharged home. Discharge orders instructions from the chart for further review. Total Time Total Time Spent Total Time Spent (In Minutes): 20 minutes Discharge Plan Discharge Items Patient Disposition: Home - Home Health Services Reason For Visit: Intervetebral Disc Disorders with Radiculopathy Discharge Diagnosis: Lumbar spinal stenosis with neurogenic claudication Activity: As commented below Non-emergency contact: Primary Care Provider Call non-emergency contact if: you have any medication questions Follow-up/Referrals: Mary Jane Germain MD [Primary Care Provider] - (Date & Time 01/21/2023 1:40 PM Provider Glenda Barba MD Department Family Medicine [facility] ) Diet: Low Fiber Addtl Attending Provider Instructions: ACTIVITY RECOMMENDATIONS: SELF CARE INSTRUCTIONS AFTER THORACIC/LUMBAR FUSIONS 1. You may walk to your tolerance. It is good exercise for your legs and back. Expect some back and intermittent leg aches and pains. 2. You may perform "counter-top" level activities (make a sandwich, dee dee with a project, etc.). 3. No bending or lifting of more than 10 pounds or back twisting of any nature (roll like a log when turning in bed). 4. You may ride in a car for 20-30 minutes at a time. No driving until after your first visit with your doctor. 5. Frequent changes of position and restricting sitting to 30 minutes at a time will help limit the amount of back spasms and stiffness you may experience. 6. You may discontinue the use of ambulatory aids (cane, crutches, etc.) once your strength and confidence allow. 7. You may watchstander the shower and let water strike your incision when you arrive home at least once daily. Do not take a tub bath, sit in a hot tub or go into a swimming pool until after your first recheck in the office. SPECIAL CARE INSTRUCTIONS: VERY IMPORTANT TO READ AND REVIEW A. Your surgical incision has been closed with a cosmetic suture under the skin that will dissolve in about 6 weeks. In 14 days, you can use a pair of clean scissors and cut the suture that is left outside of the skin at the ends of your incision. 1. The small skin tapes can be removed 7 days after surgery if they have not fallen off by that point. 2. You may keep the wound open to air as much as possible to promote healing after post-op day number 5 unless told otherwise by your doctor. 3. If you think the wound looks like it is becoming infected (redness or worsening drainage) and/or you are experiencing fever, chill or worsening back pain and muscle spasms, contact the office so that we may evaluate you as soon as possible. B. Complications are uncommon, but please contact us if you have any signs or symptoms of: 1. wound infection (fever higher than 102.5 degrees F, redness, separation of wound, drainage, or increasing pain from the incision) 2. blood clots in legs (pain, swelling, redness and warmth in legs) 3. urinary tract infection (fever higher than 102.5 degrees F, burning upon urination or increased frequency of urination) 4. nerve problems (inability to walk on your toes or heels, numbness, loss of bowel or bladder control) 5. any other symptoms that concern you C. Please call the office at if you have any concerns or questions about your operation or recovery. D. No smoking! Smoking drastically decreases the chance of a solid fusion. E. Do not take any anti-inflammatory medications (Indocin, Advil, Motrin, Aspirin, Naprosyn, etc.) as these may inhibit the chance of a solid fusion. Tylenol is okay to take for pain. MANAGING PAIN AFTER SPINAL SURGERY 1. Narcotic medication is intended for short-term use and will be provided for surgical pain. Surgical pain usually lasts for a period of 4-6 weeks. Narcotic medication includes Percocet, Vicodin, Darvocet, Tylenol #3 or Lortab. 2. Longer-term pain is more appropriately treated with non-narcotic medication such as Tylenol ES. 3. Muscle spasm is not appropriately treated with narcotics. Muscle relaxers such as Soma, Flexeril or Skelaxin can be used along with Tylenol ES. 4. Remember that we all live with some "aches and pains". This is not unusual or uncommon after an injury or as we get older. a. Back pain is expected and may include muscle spasms for 4 to 6 weeks after surgery. The pain should gradually improve. If the pain worsens for no apparent reason, please contact the office. b. Intermittent leg pain may also be experienced and should not be concerned about unless it worsens for no apparent reason. If so, please contact the office. 5. We will provide appropriate medication within the normal guidelines of their prescribed use. We will also be very cautious and aware of potential abuse and extended duration of patients' medication needs. a. Pain medications are for your comfort and to assist with sleep and rest so that the tissue can heal. They are not provided in order to return to normal activity and should not be used through the day. To do so or worsening pain at night can result from ongoing tissue damage and development of tolerance to the prescribed medicine. 6. Please allow 2-3 days to process refills. Prescriptions will not be mailed but must be picked up at the office. FOLLOW UP VISIT: Keep your scheduled follow-up appointment. Any questions, please call the office at . Addtl Technical Operations Manager Provider Instructions: You were diagnosed with acute diverticulitis while inpatient. This is treated with antibiotics. Please take Augmentin 875 mg twice daily for 13 days, completed course in its entirety. Please take daily probiotic while on antibiotics. It is recommended you follow a low fiber diet for 2 weeks. Information regarding a low fiber diet will be provided to you at discharge. Once you are completed with antibiotics and symptoms have completely resolved you can then resume a normal diet. It is recommended you undergo a colonoscopy 6-8 weeks after resolution of diverticulitis since this has been your 2nd episode this year. Your primary care provider can arrange this. Please follow-up with your primary care provider as scheduled. OTHER INSTRUCTIONS: Seek medical attention if you have: * temperature above 101 * chest pain or trouble breathing * abdominal pain, nausea, vomiting * diarrhea, dark stools or bloody stools * any unanswered questions or concerns Call 911 if symptoms are severe. Please take good care of yourself. It has been a pleasure taking care of you. Please take care of yourself. If you have any questions regarding your recent hospitalization please contact [facility] and request Jonnie Nikist @ [phone]. Sophia Joya PA-C Pending Studies at Discharge: No Stand-Alone Forms: My [facility], Smoking Cessation Medications and DC Order Prescriptions: New tramadol 50 mg tablet 50 mg PO Q6H PRN (Reason: pain, moderate) Qty: 30 0RF oxycodone 5 mg tablet 5 mg PO Q6H PRN (Reason: pain) Qty: 30 0RF amoxicillin-pot clavulanate 875-125 mg tablet 1 tab PO Q12H 13 Days Qty: 26 0RF Saccharomyces boulardii [Florastor] 250 mg capsule 250 mg PO DAILY Qty: 14 0RF Continued acetaminophen 500 mg Capsule 1,000 mg PO BID PRN (Reason: Pain) Patient Comments: space it out / take 2 every 12 hours albuterol sulfate 90 mcg/actuation Aerosol Powdr Breath Activated 1 inh INHALATION UD PRN (Reason: dust or animal dander ) methyl salicylate-menthol Ointment 1 ea TOPICAL UD PRN (Reason: Pain) Lidocaine Patch 1 dose topical UD PRN (Reason: Pain) buspirone 5 mg Tablet 5 mg PO BID meclizine 12.5 mg tablet 12.5 mg PO UD PRN (Reason: Dizziness) lisinopril 10 mg Tablet 10 mg PO QAM multivitamin Capsule 1 cap PO QAM cholecalciferol (vitamin D3) 25 mcg (1,000 unit) tablet 1,000 unit PO QAM aspirin 81 mg Capsule 81 mg PO QAM Discharge Orders: Discharge Order (Routine); Ordered 01/13/23 Ordered By: Tin Navarro/Other Patient Handouts: Low-Fiber Diet, Diverticulitis Dc Admission Data Admit Date/Time: 01/09/23 11:55 Attending Provider: Tin Baker Admit Provider: Tin Baker Primary Care Provider: Mary Jane Germain Other Providers: Samra Dumont ; Shravan Kowalski Brittany L.
--- NOTE | 2023-01-13 11:07 | Hospitalist Progress Note ---
Date of Service January 13, 2023 Assessment & Plan (1) Neurogenic claudication due to lumbar spinal stenosis: (2) HTN, goal below 140/80: (3) Prediabetes: (4) Anxiety and depression: Plan Ms. Almodovar is a 77-year-old female who presented to the ED for an elective surgical procedure under the care of Dr. Baker. Patient underwent L4- S1 decompression and fusion surgery today after failed conservative outpatient measures taken. Intraoperatively EBL 100 mL. Additional PMH includes HTN, HLD, prediabetes, and anxiety and depression. No history of blood clots or bleeding disorder. Preop ECG reviewed normal sinus rhythm without ectopy. She had an admission 08/18/22-08/20/22 with pancreatitis that was treated conservatively with antibiotics. No history of blood clots or bleeding disorder. Preop ECG normal sinus rhythm and chest x-ray without cardiopulmonary disease. Post operative lumbar x-ray: Fluoroscopy provided during L4-L5 discectomy with posterior decompression and L4-S1 pedicle screw fusion. Neurogenic claudication due to lumbar spinal stenosis: s/p decompression and fusion with Dr. Baker. On 01/09/2023 Per ortho for pain control, wound care, anticoagulation and activities. Monitor H&H, preop hemoglobin 13.3 on 12/24/22. Continue incentive spirometry; demonstrated appropriate use PT/OT when appropriate Minimal back pain without radiation-management as per Ortho Reviewed her CBC and PRP with electrolytes-remains stable Acute sigmoid diverticulitis Presented with acute left lower quadrant pain since this morning CT scan of the abdomen pelvis documented to be acute sigmoid diverticulitis without any perforation and/or microabscess Currently on IV Unasyn, will discharge on Augmentin to complete a total of 14- day course with daily probiotic Patient educated on low fiber diet She will also need a colonoscopy as outpatient after 6 to 8 weeks have passed given this is her second episode this year. HTN: Chronic stable Takes lisinopril; continue Preop creatinine 0.69 Check BMP in AM.Remain unremarkable and the blood pressure is controlled Anxiety and depression: Chronic stable Was recently prescribed BuSpar (12/2222); reports has not taken it. Will hold since she has not started it Denies any acute anxiety and/or delirium Prediabetes: Chronic stable Hemoglobin A1c 6.2 during preop testing Does not take any antidiabetic medications [id number] sugar remains stable Blood sugar remains stable Disposition: PCP: Dr. Germain CODE STATUS: Full code VTE prophylaxis: Per admitting team Medically stable to be discharged Admission and Anticipated Discharge Date Admission Date: January 09, 2023 Supervising Physician Co-Signing Physician Notes Attending addendum The patient was seen and examined in medical floor She has been feeling much better and denies any significant left lower quadrant abdominal pain Bowel is moving and she has been getting physical therapy following back surgery She will be discharged home this afternoon On examination Lying in bed without any acute distress Hemodynamically stable Abdomen-soft, nondistended with minimal tenderness left lower quadrant without guarding and no rigidity Her labs, imaging studies and medications reviewed Has acute diverticulitis involving the sigmoid colon with a status post lumbar decompression fusion Will need Augmentin for over a total of 14 days of antibiotic following discharge Agree with assessment and plan as outlined above by MANUEL Kowalski Subjective Patient was seen and examined in 310. Follow-up with back surgery and acute diverticulitis. She feels well today and wishes to be discharged home. She denies any nausea, vomiting or abdominal pain. She tolerated a diet this morning. She denies fever, chills, sweats, lightheadedness, dizziness, chest pain, shortness of breath, nausea or vomiting. She does have back pain this morning and feels a secondary to the bed. She has been up and ambulating. She feels she will do better at home. Review of Systems Review of Systems: All systems reviewed & are unremarkable except as noted in HPI & below Physical Exam Physical Exam: Gen: WD/WN, NAD, A&O x3 HEENT: Normocephalic, atraumatic, conjunctivae moist, sclerae anicteric, mucous membranes moist. Lung: Clear to Auscultation bilaterally, no wheezes/rales/rhonchi Heart: Regular rate, regular rhythm, no murmurs, rubs, or gallops Abdomen: Soft, NT, ND +BS x 4 Extremities: No edema, lumbar dressing CDI Skin: Warm, no rash, negative turgor. Results & Data Results & Data Vital Signs (Past 12 Hours) Vital Signs Temp Pulse Resp BP Pulse Ox O2 Del Method 01/13/23 07:20 36.4 C L 77 16 130/71 96 Room Air Laboratory Results Short CBC 01/13/23 Range/Units 05:32 WBC 8.15 (4.8-10.8) K/ul Hgb 11.4 L (12.0-16.0) g/dl Hct 35.1 L (37.0-47.0) % Plt Count 286 (130-400) K/uL BMP 01/13/23 05:32 Sodium 138 Potassium 4.1 Chloride 105 Carbon Dioxide 27 BUN 16 Creatinine 0.67 Glucose 99 Calcium 8.5 L Medications Administered Current Inpatient Medications Acetaminophen (Acetaminophen 500 Mg Tab) 1,000 mg PO Q8H PRN PRN Reason: MILD Pain Scale 1,2,3 & Pre PT Stop: 02/08/23 13:48 Last Admin: 01/12/23 20:25 Dose: 1,000 mg Al Hydrox/Mg Hydrox/Simethicone (Aluminum/Magnesium Susp 30 Ml Udc) 30 ml PO Q6H PRN PRN Reason: Dyspepsia Stop: 02/08/23 13:48 Albuterol (Albuterol Hfa 8 Gm Inhaler) 1 puffs INH Q6H PRN; Protocol PRN Reason: dust or animal dander Stop: 02/08/23 14:13 Aspirin (Aspirin 81 Mg Ectab) 81 mg PO QAM [facility] Stop: 02/09/23 08:59 Last Admin: 01/13/23 07:43 Dose: 81 mg Bisacodyl (Bisacodyl 10 Mg Supp) 10 mg NV DAILY PRN PRN Reason: Constipation Stop: 02/08/23 13:48 Last Admin: 01/12/23 06:11 Dose: 10 mg Buspirone HCl (Buspirone 5 Mg Tab) 5 mg PO BID [facility] Stop: 02/08/23 20:59 Last Admin: 01/09/23 21:32 Dose: Not Given Diphenhydramine HCl (Diphenhydramine Capsule 25 Mg Cap) 25 mg PO Q6H PRN PRN Reason: Allergic Rhinitis/Insomnia Stop: 02/08/23 13:48 Famotidine (Famotidine 20 Mg Tab) 20 mg PO Q12H PRN PRN Reason: Dyspepsia Stop: 02/08/23 13:48 Hydromorphone HCl (Hydromorphone Inj 0.5 Mg/0.5 Ml Syr) 0.5 mg IV Q3H PRN PRN Reason: MODERATE Pain (Scale 4,5,6) & Pre PT Stop: 01/23/23 13:48 Hydromorphone HCl (Hydromorphone Inj 1 Mg/Ml Syringe) 1 mg IV Q3H PRN PRN Reason: SEVERE Pain (Scale 7,8,9,10) Stop: 01/23/23 13:48 Hydroxyzine HCl (Hydroxyzine Hcl 25 Mg Tab) 25 mg PO Q8H PRN PRN Reason: Anxiety Stop: 02/08/23 13:48 Promethazine HCl 12.5 mg/ (Sodium Chloride) 50.5 mls @ 202 mls/hr IV Q6H PRN PRN Reason: Nausea &/or Vomiting Stop: 02/08/23 13:48 Last Infusion: 01/09/23 17:44 Dose: Infused Ampicillin Sodium/Sulbactam Sodium 3,000 mg/ Sodium Chloride 108 mls @ 200 mls/hr IV Q6H [facility]; Protocol Stop: 01/22/23 13:59 Last Infusion: 01/13/23 08:19 Dose: Infused Influenza Virus Vaccine Quadrival (Do Not Administer Flu Vaccine) 1 each N/A PRN PRN PRN Reason: Notification Stop: 02/08/23 13:48 Lisinopril (Lisinopril 10 Mg Tab) 10 mg PO [facility] Stop: 02/09/23 08:59 Last Admin: 01/13/23 07:43 Dose: 10 mg Lorazepam (Lorazepam 0.5 Mg Tab) 0.5 mg PO Q8H PRN PRN Reason: Sedation/Anxiety Stop: 02/08/23 13:48 Lorazepam (Lorazepam 2 Mg/1 Ml Vial) 0.5 mg IV Q8H PRN PRN Reason: Sedation/Anxiety Stop: 02/08/23 13:48 Magnesium Hydroxide (Magnesium Hydroxide Susp 30 Ml Udc) 30 ml PO Q24H PRN PRN Reason: Constipation Stop: 02/08/23 13:48 Metoclopramide HCl (Metoclopramide Hcl Inj 5 Mg/Ml 2 Ml Vial) 10 mg IV Q6H PRN PRN Reason: Nausea &/or Vomiting Stop: 02/08/23 13:48 Multivitamins (Multivitamin Tab) 1 tab PO [facility] Stop: 02/09/23 08:59 Last Admin: 01/13/23 07:43 Dose: 1 tab Naloxone HCl (Naloxone Hcl 0.4 Mg/1 Ml Vial/Carp) 0.1 mg IV Q5M PRN PRN Reason: Oversedation/Resp depression Stop: 02/08/23 13:48 Ondansetron HCl (Ondansetron Inj 2 Mg/Ml 2 Ml Vial) 4 mg IV Q6H PRN PRN Reason: Nausea &/or Vomiting Stop: 02/08/23 13:48 Ondansetron HCl (Ondansetron 4 Mg Od Tab) 4 mg PO Q6H PRN PRN Reason: Nausea Stop: 02/08/23 13:48 Last Admin: 01/09/23 14:28 Dose: 4 mg Oxycodone HCl (Oxycodone Hcl Ir 5 Mg Tab (Immediate Release)) 5 - 10 mg PO Q4H PRN PRN Reason: Pain & Pre PT Stop: 01/23/23 13:48 Last Admin: 01/10/23 18:35 Dose: 10 mg Pneumococcal Polyvalent Vaccine (Do Not Administer Pneumococcal Vaccine) 1 each N/A PRN PRN PRN Reason: Notification Stop: 02/08/23 13:48 Senna/Docusate Sodium (Docusate Sodium/Senna 50/8.6mg Tab) 2 tab PO HS [facility] Stop: 02/08/23 20:59 Last Admin: 01/12/23 20:22 Dose: 2 tab Sodium Biphosphate/Sodium Phosphate (Sod Phosphate/Sod Biphosphate Enema 132 Ml Btl) 132 ml NV ONE PRN PRN Reason: Constipation Stop: 02/08/23 13:48 Tramadol HCl (Tramadol Hcl 50 Mg Tablet) 50 - 100 mg PO Q4H PRN PRN Reason: Moderate-Severe pain & Pre PT Stop: 02/08/23 13:48 Last Admin: 01/13/23 07:42 Dose: 100 mg Vitamin D (Cholecalciferol 1,000 Units 25 Mcg Tab) 1,000 units PO QAM [facility] Stop: 02/09/23 08:59 Last Admin: 01/13/23 07:42 Dose: 1,000 units
== END 2023-01-13 14:51 | disposition home health service (06) | DRG 454 ==
LOC: ASU 07:32 → 3E 11:55